=== PATIENT | male | born 1955 | race Two or more races ===

== ENCOUNTER 2021-03-21 05:11 | Emergency (ER) | payer MEDICARE, SELFPAY ==
[2021-03-21 05:17] VITALS: BP 139/81; PULSE 62; RESP 18; TEMP 36.5; O2SAT 99; BMI 34.4
== END 2021-03-21 06:04 | disposition left against medical advice (07) ==
PROVIDERS: Emergency Provider Emergency Medicine; PCP Internal Medicine
DX: R21 Rash and other nonspecific skin eruption (principal)
CPT/HCPCS: 99281; 99282

== ENCOUNTER 2021-04-19 15:30 | Emergency (ER) | payer MEDICARE, SELFPAY ==
--- NOTE | ~2021-04-19 | XR_ITS ---
EXAMINATION: XR CHEST CLINICAL INFORMATION: Post Covid symptoms COMPARISON: Previous chest x-ray most recent January 2019 TECHNIQUE: 2 views of the chest were obtained. FINDINGS: The cardiac silhouette is upper normal in size but stable. The thoracic aorta is tortuous but stable. Hilar and mediastinal contours are otherwise unremarkable. The lungs are clear. There is no pleural effusion or pneumothorax. There are degenerative changes of the spine. XR/XR chest 2V IMPRESSION: Upper normal-size cardiac silhouette tortuous thoracic aorta. No evidence for acute disease in chest.
--- NOTE | ~2021-04-19 | CT_ITS ---
EXAMINATION: CT ANGIOGRAM OF THE CHEST WITH AND WITHOUT CONTRAST (CT PULMONARY ANGIOGRAM FOR PE) CLINICAL INFORMATION: Reason for Exam dizziness, new onset AFib recent COVID r/o PE COMPARISON: Chest radiograph earlier today TECHNIQUE: Prior to contrast administration, noncontrast localization images were obtained. Subsequently, multidetector volumetric imaging was performed from the thoracic inlet to below the diaphragms following the administration of 71 mL Omnipaque 350 intravenous contrast. No contrast reaction reported Sagittal, coronal, and MIP oblique sagittal reformatted images were obtained on the CT workstation, uploaded to PACS, and reviewed. This CT examination was performed using dose optimization techniques as appropriate, variously including the following: *Automated exposure control *Adjustment of mA and/or kV according to patient size (this includes techniques or standardized protocols for targeted exams where dose is matched to indication/reason for exam; i.e. extremities or head) *Use of iterative reconstruction technique Total exam dose-length product 487 mGy-cm FINDINGS: QUALITY OF STUDY/CONTRAST BOLUS: Satisfactory. PULMONARY ARTERIES: No central or segmental pulmonary emboli. THORACIC AORTA: No aneurysm. No gross dissection. LUNG: Some nonspecific mosaic groundglass changes are present dependently at the lung bases. No worrisome focal consolidation, nodules or masses. PLEURA: No pleural effusion or pneumothorax. MEDIASTINUM: Normal heart size. No pericardial effusion. No hilar or mediastinal lymphadenopathy. No evidence of septal bowing or right heart strain. CHEST WALL/AXILLA: No axillary or internal mammary lymphadenopathy. OSSEOUS STRUCTURES: No acute or suspicious osseous abnormality. UPPER ABDOMEN: Unremarkable. No reflux of contrast into the hepatic veins to suggest elevated right heart pressures. CT/CT angio chest PE protocol IMPRESSION: No evidence of pulmonary emboli VTE: negative
[2021-04-19 15:35] VITALS: BP 116/77; PULSE 97; RESP 18; TEMP 36.7; O2SAT 100; BMI 33.7
--- NOTE | 2021-04-19 16:03 | ECG_ITS ---
Test Reason : upper abd pain Blood Pressure : / mmHG Vent. Rate : 077 BPM Atrial Rate : 000 BPM P-R Int : 000 ms QRS Dur : 116 ms QT Int : 366 ms P-R-T Axes : 000 001 004 degrees QTc Int : 414 ms Atrial fibrillation Inferior infarct (cited on or before 23-SEP-2007) Abnormal ECG When compared with ECG of 15-FEB-2019 03:04, Atrial fibrillation has replaced Sinus rhythm Referred By: Generic ED Physician Electronically Signed By:YAHAIRA LANDA
[2021-04-19 16:05] LABS: MANUAL DIFF FLAG NO
[2021-04-19 16:08] LABS: Basophils Absolute Auto 0.1 X10*3/uL (0.0-0.2); Basophils Percent Auto 0.8 % (0-2); Eosinophils Absolute Auto 0.1 X10*3/uL (0.0-0.4); Eosinophils Percent Auto 1.6 % (0-4); Hematocrit 44.7 % (42.0-52.0); Hemoglobin 15.1 g/dl (14.0-18.0); Imm Gran Abs Auto 0.01 X10*3/uL (0.00-0.03); Imm Gran Pct Auto 0.2 % (0.0-0.4); Lymphocytes Absolute Auto 1.5 X10*3/uL (1.2-4.9); Lymphocytes Percent Auto 23.3 % (20-40); Mean Corpuscular HGB Conc 33.8 g/dl (31.0-36.0); Mean Corpuscular Volume 91.8 fL (80.0-98.0); Mean Platelet Volume 10.7 fL (9.4-12.4); Monocytes Absolute Auto 0.6 X10*3/uL (0.1-1.2); Neutrophils Absolute Auto 4.2 x10*3/uL (2.0-8.3); Neutrophils Percent Auto 65.1 % (45-73); Platelet Count 239 X10*3/uL (160-400); Red Blood Count 4.87 X10*6/uL (4.60-5.80); Red Cell Distribution Width 13.7 % (11.0-16.0); White Blood Count 6.4 X10*3/uL (4.8-10.8)
[2021-04-19 16:10] LABS: Appearance Urine CLEAR; Color Urine YELLOW; Glucose Urine UA NEG (NEG); Leukocyte Esterase Urine NEG (NEG); Nitrite Urine NEG (NEG); PH 5.5 (5.0-8.0); Urine Blood NEG (NEG); Urine Ketones NEG (NEG); Urine Protein NEG (NEG-TRACE)
[2021-04-19 16:24] LABS: Alanine Aminotransferase 32 U/L (0-40); Albumin Level 4.6 g/dL (3.5-5.0); Alkaline Phosphatase 68 U/L (39-117); Anion Gap 12 (12-20); Aspartate Amino Transferase 24 U/L (5-37); Bilirubin Total 0.6 mg/dL (0.0-1.0); Blood Urea Nitrogen 17 mg/dL (9-16); Calcium 9.7 mg/dL (8.4-10.2); Carbon Dioxide 32 mmol/L (22-29); Chloride 101 mmol/L (96-108); Creatinine Clr Calc Pharmacy 85.5; Estimated Glomerular Filt Rate > 60; Glucose Random 121 mg/dL (60-115); Potassium 3.9 mmol/L (3.3-5.1); Sodium 141 mmol/L (135-145); Total Protein 7.7 g/dL (6.5-8.0)
[2021-04-19 16:27] LABS: Troponin-I High Sensitivity 4.6 ng/L (<3.5-35.0)
--- NOTE | 2021-04-19 17:36 | ED_ITS ---
HPI - Abdominal Pain General Chief Complaint: Abdominal Pain Stated Complaint: abd pain/ light headedness Time Seen by Provider: 04/19/21 16:15 Source: patient Mode of arrival: ambulatory Limitations: no limitations History of Present Illness HPI narrative: feeling weak, lightheaded upper abdominal discomfort since his COVID symptoms ended on Sunday. notes some feelings of lightheadedness and fullness in upper ab sawyer HOFFMANN elicited complaint: abdominal pain Pertinent past history: other (vaccinated and boostered COVID x 2 weeks ago symptoms resolved from COVID on sunday) Onset (ago): day(s) (started Sunday ) Pain Consistency: intermittent Location: epigastric Severity: mild Quality: fullness Radiation: none Migration to: no migration Exacerbating factors: movement Relieving factors: nothing Associated symptoms: other (lightheaded) Related Data Previous Rx's Medication Instructions Recorded apixaban 5 mg tablet (Eliquis) 5 mg PO BID #60 tab 04/19/21 Allergies Allergy/AdvReac Type Severity Reaction Status Date / Time No Known Allergies Allergy Unknown NOT Verified 04/19/21 15:34 APPLICABLE Review of Systems Review of Systems Constitutional : No Weight loss, No Fever, No Chills ENT/Mouth : No sore throat, No Rhinorrhea Eyes: No Swelling, No Redness Cardiovascular : No Chest Pain, No SOB, NoEdema Respiratory : No Cough, No Sputum, No Wheezing Gastrointestinal : no Nausea, no Vomiting, no Diarrhea, positive abdominal Pain, No Hematochezia, No Melena Genitourinary : No Dysuria, No Urinary Frequency, No Hematuria, No Urgency Musculoskeletal : No joint pain, No Myalgias, No Joint Swelling Skin : No Skin Lesions, No rash Neuro : No Weakness, No Numbness, pos Dizziness, No Headache Psych : No Anxiety/Panic, No Depression Heme/Lymph: No Bruising, No Lymphadenopathy Endocrine : No Polyuria, No Polydipsia All other systems reviewed and are negative. Physical Exam Verdana 4l Vital Signs: Verdana 4d Verdana 4d Vital Signs: Verdana 4d Verdana 4Bd Last Vital Signs Verdana 4d Or Nurse Manager New 4d Or Nurse Manager New 4d Temp 98.4 F 04/19/21 17:50 Or Nurse Manager New 4d Pulse 67 04/19/21 17:50 Or Nurse Manager New 4d Resp 15 04/19/21 17:50 BP 148/91 H 04/19/21 17:50 Pulse Ox 99 04/19/21 17:50 BMI result Body Mass Index 33.7 Appearance: Alert. Oriented X3. No acute distress. Eyes: Pupils equal, round and reactive to light. ENT: Pharynx normal. Neck: Normal inspection. Neck supple. CVS: irregular in 60s heart rate and rhythm. Pulses normal. Respiratory: No respiratory distress. Breath sounds normal. Abdomen: Soft and non-tender. Skin: Skin warm and dry. Normal skin color. Normal skin turgor. Extremities: trace pitting lower extremity edema. No calf ttp Neuro: Oriented X 3. No motor deficit. No sensory deficit. Course Course Course Narrative: labs stable, coags stable, plts normal - no issues with bleeding - needs to start on eliquis given afib went over falling, GIB symptoms and reasons to return - HR 60/70s does not need rate control MDM - Abdominal Pain MDM Narrative Medical decision making narrative: 66 yo male with hx of HTN on lisinopril/HCTZ here with c/o feeling some lightheadedness and upper abdominal discomfort since recovering from COVID - dx two weeks ago not feeling well since Sunday - denies GIB symptoms at this time. He notes that he has never had afib before his rate is controlled. his ChadsVas score is 2 would be a candidate for eliquis - no prior bleeding issues. At this time will need labs, BNP, troponin, CTA to r/o PE. Dispo per results and findings. Lab Data Result diagrams: 04/19/21 15:57 04/19/21 15:57 Labs: Lab Results 04/19/21 04/19/21 04/19/21 Range/Units 15:57 15:57 15:57 WBC 6.4 (4.8-10.8) X10*3/uL RBC 4.87 (4.60-5.80) X10*6/uL Hgb 15.1 (14.0-18.0) g/dl Hct 44.7 (42.0-52.0) % MCV 91.8 (80.0-98.0) fL MCH 31.0 (27.0-33.0) pg MCHC 33.8 (31.0-36.0) g/dl RDW 13.7 (11.0-16.0) % Plt Count 239 (160-400) X10*3/uL MPV 10.7 (9.4-12.4) fL Immature Gran % (Auto) 0.2 (0.0-0.4) % Neut % (Auto) 65.1 (45-73) % Lymph % (Auto) 23.3 (20-40) % [place] % (Auto) 9.0 (2-11) % Eos % (Auto) 1.6 (0-4) % Baso % (Auto) 0.8 (0-2) % Lymph # (Auto) 1.5 (1.2-4.9) X10*3/uL [place] # (Auto) 0.6 (0.1-1.2) X10*3/uL Eos # (Auto) 0.1 (0.0-0.4) X10*3/uL Baso # (Auto) 0.1 (0.0-0.2) X10*3/uL Abs Immat Gran (auto) 0.01 (0.00-0.03) X10*3/uL Absolute Neuts (auto) 4.2 (2.0-8.3) x10*3/uL Absolute Nucleated RBC 0.000 (0.0-0.012) X10*3/uL Nucleated RBC % (auto) 0.0 (0.0-0.2) /100WBC PT (9.9-13.0) SEC INR (0.9-1.1) APTT (24.1-38.0) SEC Sodium 141 (135-145) mmol/L Potassium 3.9 (3.3-5.1) mmol/L Chloride 101 (96-108) mmol/L Carbon Dioxide 32 H (22-29) mmol/L Anion Gap 12 (12-20) BUN 17 H (9-16) mg/dL Creatinine 1.01 (0.5-1.4) mg/dL Estim Creat Clear Calc 85.5 Estimated GFR > 60 Random Glucose 121 H (60-115) mg/dL Calcium 9.7 (8.4-10.2) mg/dL Total Bilirubin 0.6 (0.0-1.0) mg/dL AST 24 (5-37) U/L ALT 32 (0-40) U/L Alkaline Phosphatase 68 (39-117) U/L Troponin I High Sens 4.6 (<3.5-35.0) ng/L B-Natriuretic Peptide (<100) pg/mL Total Protein 7.7 (6.5-8.0) g/dL Albumin 4.6 (3.5-5.0) g/dL Lipase 29 (8-78) U/L TSH 1.57 (0.32-4.0) uIU/mL Urine Color Urine Appearance Urine pH (5.0-8.0) Ur Specific Allison (1.005-1.025) Urine Protein (NEG-TRACE) MG/DL Urine Glucose (UA) (NEG) MG/DL Urine Ketones (NEG) MG/DL Urine Blood (NEG) Urine Nitrite (NEG) Ur Leukocyte Esterase (NEG) 04/19/21 04/19/21 04/19/21 Range/Units 15:57 17:52 17:52 WBC (4.8-10.8) X10*3/uL RBC (4.60-5.80) X10*6/uL Hgb (14.0-18.0) g/dl Hct (42.0-52.0) % MCV (80.0-98.0) fL MCH (27.0-33.0) pg MCHC (31.0-36.0) g/dl RDW (11.0-16.0) % Plt Count (160-400) X10*3/uL MPV (9.4-12.4) fL Immature Gran % (Auto) (0.0-0.4) % Neut % (Auto) (45-73) % Lymph % (Auto) (20-40) % [place] % (Auto) (2-11) % Eos % (Auto) (0-4) % Baso % (Auto) (0-2) % Lymph # (Auto) (1.2-4.9) X10*3/uL [place] # (Auto) (0.1-1.2) X10*3/uL Eos # (Auto) (0.0-0.4) X10*3/uL Baso # (Auto) (0.0-0.2) X10*3/uL Abs Immat Gran (auto) (0.00-0.03) X10*3/uL Absolute Neuts (auto) (2.0-8.3) x10*3/uL Absolute Nucleated RBC (0.0-0.012) X10*3/uL Nucleated RBC % (auto) (0.0-0.2) /100WBC PT 12.5 (9.9-13.0) SEC INR 1.1 (0.9-1.1) APTT 34.4 (24.1-38.0) SEC Sodium (135-145) mmol/L Potassium (3.3-5.1) mmol/L Chloride (96-108) mmol/L Carbon Dioxide (22-29) mmol/L Anion Gap (12-20) BUN (9-16) mg/dL Creatinine (0.5-1.4) mg/dL Estim Creat Clear Calc Estimated GFR Random Glucose (60-115) mg/dL Calcium (8.4-10.2) mg/dL Total Bilirubin (0.0-1.0) mg/dL AST (5-37) U/L ALT (0-40) U/L Alkaline Phosphatase (39-117) U/L Troponin I High Sens (<3.5-35.0) ng/L B-Natriuretic Peptide 73 (<100) pg/mL Total Protein (6.5-8.0) g/dL Albumin (3.5-5.0) g/dL Lipase (8-78) U/L TSH (0.32-4.0) uIU/mL Urine Color YELLOW Urine Appearance CLEAR Urine pH 5.5 (5.0-8.0) Ur Specific [place] 1.020 (1.005-1.025) Urine Protein NEG (NEG-TRACE) MG/DL Urine Glucose (UA) NEG (NEG) MG/DL Urine Ketones NEG (NEG) MG/DL Urine Blood NEG (NEG) Urine Nitrite NEG (NEG) Ur Leukocyte Esterase NEG (NEG) ECG Data Attestation: I personally reviewed and interpreted this ECG as follows: ECG interpretation date: 04/19/21 ECG interpretation time: 17:38 Interpretation: Rate: 77 Rhythm: afib [place]: left Normal QRS complex. ST T wave : no STEPHEN, normal qTC: normal prior studies: no acute ischemia The study has been interpreted contemporaneously by me. . Discharge Plan Discharge Clinical Impression: A-fib Qualifiers: Atrial fibrillation type: unspecified Qualified Code(s): I48.91 - Unspecified atrial fibrillation Patient Disposition: Home, Self-Care Instructions: A-fib (Atrial Fibrillation) (ED), Blood Thinners (ED) Additional Instructions: return to ED for any worsening symptoms or concerns monitor HR should be below 90 at rest please follow up with quotation clerk if you fall and hit your head you need to seek immediate care, black or blood stools require immediate care, life threatening bleeding requires care, nose bleeds can become serious if they do not stop. Prescriptions: New Eliquis 5 mg tablet 5 mg PO BID Qty: 60 0RF Referrals: Lit Chavez MD [Physician] - 1 week Stand Alone Forms: Work/School Release [facility] Past Medical History Attestation statement: The following information was validated with the patient. Medical History HTN (hypertension) Social History Social History (Updated 04/19/21 @ 18:10 by Magda Ríos DO) Patient Tobacco Use Status: Never used Tobacco Advance Directives: No Advance Directives Information Provided: No
[2021-04-19 17:50] VITALS: BP 148/91; PULSE 67; RESP 15; TEMP 36.9; O2SAT 99
[2021-04-19 18:13] LABS: INTERNATIONAL NORM RATIO 1.1 (0.9-1.1); Prothrombin Time 12.5 SEC (9.9-13.0)
[2021-04-19 18:13] LABS: Lipase 29 U/L (8-78)
[2021-04-19 18:16] LABS: Partial Thromboplastin Time 34.4 SEC (24.1-38.0)
[2021-04-19 18:25] LABS: B Type Natriuretic Peptide 73 pg/mL (<100)
[2021-04-19 18:33] LABS: Thyroid Stimulating Hormone 1.57 uIU/mL (0.32-4.0)
[2021-04-19] MEDS: iohexoL 350 MG/ML 100 ML INFUS..BTL IV (18:37)
[2021-04-19 19:51] VITALS: BP 111/75; PULSE 76; RESP 12; O2SAT 97
== END 2021-04-19 20:11 | disposition home or self-care (01) ==
PROVIDERS: Emergency Provider Emergency Medicine; PCP Internal Medicine
DX: I48.91 Unspecified atrial fibrillation (principal); R10.10 Upper abdominal pain, unspecified; R42 Dizziness and giddiness; I10 Essential (primary) hypertension; Z86.16 Personal history of COVID-19
CPT/HCPCS: 36415; 71046; 71275; 80053; 81003; 83690; 83880; 84443; 84484; 85025; 85610; 85730; 93005; 99284; Q9967

== ENCOUNTER → 2021-04-20 10:30 | Outpatient (BNVA) | payer MEDICARE, SELFPAY | PROVIDERS: PCP Internal Medicine; Visit Provider Internal Medicine | DX: I48.0 Paroxysmal atrial fibrillation (principal); I10 Essential (primary) hypertension; Z86.16 Personal history of COVID-19 | CPT/HCPCS: 93005; 99202 ==

== ENCOUNTER → 2021-04-21 13:46 | Outpatient (REF) | payer MEDICARE, SELFPAY ==
--- NOTE | 2021-04-21 13:57 | HM_ITS ---
Conclusion: 1. Patient was monitored for total period of 2 days and 23 hours 2. Baseline rhythm is normal sinus rhythm with average heart rate 67 beats per minute 3. No significant pauses or bradycardia noted 4. Total of 1056 PVCs accounting for 0.36% of total burden accounting for occasional PVCs 5. Total of 338 PACs accounting for occasional PACs 6. No patient reported events MTDD
--- NOTE | 2021-04-21 13:57 | CA_ITS ---
Transthoracic Echocardiogram Patient (Last, First, Middle): Rodrigo Landa L Gender: Male Date of : 1955 Age: 66 Procedure Date: 04/21/2021 Procedure Type: Transthoracic Echocardiogram Location: OP Height: 177.8 cm Weight: 106.6 kg BSA: 2.24 m2 Heart Rate: bpm BP: 111 / 67 mmHg Human Resources Leader: WILLY Referring MD: Lit Chavez MD Symptoms: I48.0 - Paroxysmal atrial fibrillation Study Quality: Fair ECG Rhythm: Sinus Conclusions: - The left ventricular systolic function is low normal. The calculated ejection fraction is 52% by biplane method. - There is mild calcification of the aortic valve. - There is mild mitral valve regurgitation. Findings Left Ventricle Normal left ventricular cavity size. There is mildly increased left ventricular wall thickness. The left ventricular systolic function is low normal. The calculated ejection fraction is 52% by biplane method. There is no evidence of regional wall motion abnormalities. Diastolic function is normal for age. Right Ventricle Normal right ventricular cavity size. There is low normal right ventricular systolic function. TAPSE 1.65cm. Atria Both atria are normal in size. Aortic Valve There is a normal trileaflet aortic valve. There is mild calcification of the aortic valve. There is no aortic valve stenosis. There is trace (trivial) aortic valve regurgitation. Mitral Valve The mitral valve appears normal. There is mild mitral valve regurgitation. There is no mitral valve stenosis. Pulmonic Valve The pulmonic valve was not well visualized. Tricuspid Valve There is trace tricuspid valve regurgitation. The pulmonary artery systolic pressure is normal. Great Vessels The aortic annulus, sinuses of valsalva, asc aorta, and aortic arch are normal in size. Venous The inferior vena cava is normal in size and collapses greater than 50% with inspiration. Pericardium/Pleural There is no evidence of pericardial effusion. Prior Study Comparison No significant change compared to prior study dated: 09/24/2007. Measurements 2D Linear Measurements IVSd: 1.25 0.6-0.9/0.6-1.0 cm LVIDd: 4.47 3.9-5.3/4.2-5.9 cm LVIDd Index: 2.00 2.4-3.2/2.2-3.1 cm/m2 LVIDs: 2.93 2.0-3.6 cm LVPWd: 1.26 0.7-1.1 cm Ao Root: 3.90 2.1-3.5 cm LA Diam: 3.60 2.7-3.8/3.0-4.0 cm LAIDs Index: 1.61 1.5-2.3 cm/m2 LV Mass: 260.78 67-162/88-224 g LV Mass Index: 116.42 43-95/49-115 g/m2 LVOT Diam: 2.20 3.0+(-)1.3 cm 2D Systolic Function EF 4C: 52.40 >55% EF 2C: 51.70 >55% EF BiP: 52.10 >55% Mitral Valve MV Pk E: 0.79 MV PK A: 0.55 MV Decel Time: 218.00 E/A: 1.40 E'Lateral: 9.79 E'Medial: 9.46 E/E' Med: 8.30 E/E' Lat: 8.00 PHT: 64.00 MVA PHT: 3.44 Decel Dukes: 3.61 Aortic Valve AoV Pk Edi: 1.86 AoV Mn Edi: 1.33 AoV VTI: 0.37 AoV Pk Grad: 14.00 Aov Mn Grad: 8.00 ANDRZEJ Cont.VTI: 2.28 LVOT LVOT Pk Edi: 1.17 LVOT Mn Edi: 0.88 LVOT VTI: 0.22 LVOT Pk Grad: 5.00 LVOT Mn Grad: 3.00 LVOT Diam: 2.20 LVOT Area: 3.80 Diastolic Function MV Pk E: 0.79 MV Pk A: 0.55 E/A: 1.40 E'Medial: 9.46 E/E' Med: 8.30 E' Laterial: 9.79 E/E' Lat: 8.00 Right Ventricle TAPSE (mm): 17.00 TVS' Edi: 12.30 Tricuspid Valve TR Pk Edi: 2.46 TR Pk Grad: 24.00 RA Press: 8.00 RVSP: 32.00 Great Vessels Aorta Ao Root-2D: 3.90 2.0-3.7 cm Ao Asc: 3.10 2.1-3.4 cm Ao Arch: 3.10 Updated in Other Vendor System with Status of Final Lit Chavez MD electronically signed on 04/22/2021 1:52:59 PM with status of Final
== END ==
LOC: HO.CARD 13:46
PROVIDERS: PCP Internal Medicine; Visit Provider Internal Medicine
DX: I48.0 Paroxysmal atrial fibrillation (principal)
CPT/HCPCS: 93242; 93306

== ENCOUNTER → 2021-05-19 10:11 | Outpatient (BNVA) | payer MEDICARE, SELFPAY | PROVIDERS: PCP Internal Medicine; Visit Provider Internal Medicine | DX: I48.0 Paroxysmal atrial fibrillation (principal); I10 Essential (primary) hypertension; E66.01 Morbid (severe) obesity due to excess calories; Z86.16 Personal history of COVID-19; Z68.33 Body mass index [BMI] 33.0-33.9, adult | CPT/HCPCS: 99212 ==

== ENCOUNTER → 2021-10-31 10:10 | Outpatient (BNVA) | payer MEDICARE, SELFPAY | PROVIDERS: PCP Internal Medicine; Visit Provider Internal Medicine | DX: I48.0 Paroxysmal atrial fibrillation (principal); I10 Essential (primary) hypertension; E66.01 Morbid (severe) obesity due to excess calories; Z79.899 Other long term (current) drug therapy; Z86.16 Personal history of COVID-19 | CPT/HCPCS: 99212 ==

== ENCOUNTER 2022-02-08 05:08 | Emergency (ER) | payer MEDICARE, SELFPAY ==
[2022-02-08 05:12] VITALS: BP 143/77; PULSE 85; RESP 18; TEMP 36.6; O2SAT 96; BMI 35.2
--- NOTE | 2022-02-08 05:16 | ED.URI ---
HPI - URI/Sore Throat General Chief Complaint: Upper Respiratory Symptoms Stated Complaint: sinus pain Time Seen by Provider: 02/08/22 05:25 Source: patient Mode of arrival: ambulatory Limitations: no limitations History of Present Illness HPI Narrative: patient comes to the emergency room complaining of upper respiratory issues. Patient complaining of sore, bilateral ear discomfort, no fever, no chills, complaining of dry cough. Related Data Home Medications Medication Instructions Recorded Confirmed atorvastatin 10 mg tablet 10 mg PO DAILY 04/20/21 10/31/21 lisinopril 20 1 tab PO DAILY 04/20/21 10/31/21 mg-hydrochlorothiazide 25 mg tablet apixaban 5 mg tablet (Eliquis) 5 mg PO BID 10/31/21 10/31/21 Previous Rx's Medication Instructions Recorded benzocaine 15 mg lozenges 15 mg mucous membrane Q2-3H PRN 02/08/22 sore throat #18 ea diphenhydramine HCl 25 mg capsule 25 mg PO BEDTIME PRN allergy 02/08/22 (Benadryl) symptoms #7 caps Allergies Allergy/AdvReac Type Severity Reaction Status Date / Time No Known Allergies Allergy Unknown NOT Verified 10/31/21 10:20 APPLICABLE Review of Systems Review of Systems: Constitutional : No Weight loss, No Fever, No Chills, No Night Sweats, No Fatigue, No Malaise ENT/Mouth : No Hearing loss, No Ear Pain, No Nasal Congestion, No Sinus Pain, No Hoarseness, Complaining of mild sore throat, No Rhinorrhea, No Swallowing Difficulty Eyes: No Eye Pain, No Swelling, No Redness, No Foreign Body, No Discharge, No Vision Changes Cardiovascular : No Chest Pain, No SOB, No Dyspnea on Exertion, No Orthopnea, No Edema, No Palpitations Respiratory : No Cough, No Sputum, No Wheezing, No Smoke Exposure, No Dyspnea Gastrointestinal : No Nausea, No Vomiting, No Diarrhea, No Constipation, No abdominal Pain, No Hematochezia, No Melena Genitourinary : no irregular bleeding, No Dysuria, No Urinary Frequency, No Hematuria, No Urinary Incontinence, No Urgency, No Flank Pain, No Urinary Flow Changes, No Hesitancy Musculoskeletal : No joint pain, No Myalgias, No Joint Swelling Skin : No Skin Lesions, No rash Neuro : No Weakness, No Numbness, No Paresthesias, No Loss of Consciousness, No Dizziness, No Headache Psych : No Anxiety/Panic, No Depression, No SI/HI/AH/VH, No Social Issues, Heme/Lymph: No Bruising, No Bleeding,No Lymphadenopathy Endocrine : No Polyuria, No Polydipsia, No Temperature Intolerance [facility] Past Medical History Medical History HTN (hypertension) Morbid obesity PAF (paroxysmal atrial fibrillation) Surgical History No pertinent past surgical history Family History Family History Father No problems noted. Mother No problems noted. Social History Social History Patient Tobacco Use Status: Never used Tobacco Advance Directives: No Physical Exam Vital Signs: Vital Signs: Last Vital Signs Temp 98.4 F 02/08/22 06:18 Pulse 82 02/08/22 06:18 Resp 17 02/08/22 06:18 BP 123/73 02/08/22 06:18 Pulse Ox 94 02/08/22 06:18 O2 Del Method 02/08/22 06:18 BMI result Body Mass Index 35.2 Const: Other: Appearance: Alert. Oriented X3. No acute distress. Eyes: Pupils equal, round and reactive to light. ENT: Pharynx erythematous, no exudates, no visualized abscesses Neck: Normal inspection. Neck supple. No lymph nodes noted. No crepitus CVS: Normal heart rate and rhythm. Pulses normal. Normal S1 and S2 Respiratory: No respiratory distress. Breath sounds normal. No Wheezing. No rales Abdomen: Soft and nontender. No rigidity. No distention. Skin: Skin warm and dry. Normal skin color. Normal skin turgor. Extremities: No lower extremity edema. No Lacerations. No Rash Neuro: Oriented X 3. No motor deficit. No sensory deficit. Moving all extremities. No slurred speech. CN 2 through 12 grossly intact Psych: calm, cooperative, normal affect Course Course Course Narrative: patient's flu/ COVID/RSV and strep test are pending. Patient was seen 1 dose of p.o. dexamethasone lidocaine for symptomatic relief. Patient requesting medication to help him sleep at night and to help dry this decreases. Patient instructed to take Benadryl, prescribe this into the patient's pharmacy. both strep and RSV / influenza /COVID are negative. Medications Administered Discontinued Medications Generic Name Dose Route Start Last Admin Trade Name Mioq PRN Reason Stop Dose Admin Dexamethasone Sodium Phosphate 6 mg 02/08/22 05:21 02/08/22 05:31 Dexamethasone Sod Phosphate 4 Mg/Ml Vial IVPUSH 02/08/22 05:22 6 mg ONCE ONE Administration Lidocaine HCl 15 ml 02/08/22 05:21 02/08/22 05:33 Lidocaine Hcl Viscous 2 % 15 Ml Solution MUCOUS MEM 02/08/22 05:22 15 ml ONCE ONE Administration MDM - URI/Sore Throat Lab Data Labs: Lab Results 02/08/22 02/08/22 Range/Units 05:21 05:21 Influenza Type A (PCR) NEGATIVE (Negative) Influenza Type B (PCR) NEGATIVE (Negative) RSV RNA Qual (PCR) NEGATIVE (Negative) SARS-CoV-2 RNA (RT-PCR) NEGATIVE (Negative) S. pyogenes GrpA STEVEN Negative (Negative) Discharge Plan Discharge Clinical Impression: Upper respiratory infection Patient Disposition: Home, Self-Care Instructions: Upper Respiratory Infection (ED) Additional Instructions: Please follow-up with your primary care physician tomorrow. If you have any worsening or new symptoms, please return to the emergency room or call 911 Prescriptions: New diphenhydramine HCl [Benadryl] 25 mg capsule 25 mg PO BEDTIME PRN (Reason: allergy symptoms) Qty: 7 0RF benzocaine 15 mg lozenge 15 mg mucous membrane Q2-3H PRN (Reason: sore throat) Qty: 18 0RF No Action lisinopril-hydrochlorothiazide 20-25 mg tablet 1 tab PO DAILY atorvastatin 10 mg tablet 10 mg PO DAILY Eliquis 5 mg tablet 5 mg PO BID
[2022-02-08] MEDS: dexAMETHasone sod phosphate 4 MG/ML VIAL 6 MG IVPUSH (05:31)
[2022-02-08] MEDS: Lidocaine HCl Viscous 2 % 15 ML SOLUTION MUCOUS MEM (05:33)
[2022-02-08 06:03] LABS: Influenza A PCR NEGATIVE (Negative); Influenza B PCR NEGATIVE (Negative); Resp Syncy Virus RNA Qual PCR NEGATIVE (Negative); SARS COV2 PCR INHOUSE NEGATIVE (Negative); Strep A Nucleic Acid Negative (Negative)
[2022-02-08 06:18] VITALS: BP 123/73; PULSE 82; RESP 17; TEMP 36.9; O2SAT 94
== END 2022-02-08 06:30 | disposition home or self-care (01) ==
PROVIDERS: Emergency Provider Emergency Medicine; PCP Internal Medicine
DX: J06.9 Acute upper respiratory infection, unspecified (principal); Z20.822 Contact with and (suspected) exposure to COVID-19; Z79.899 Other long term (current) drug therapy
CPT/HCPCS: 0241U; 36415; 87651; 99283; 99284; J1100

== ENCOUNTER → 2022-05-31 08:58 | Outpatient (BNVA) | payer MEDICARE, SELFPAY | PROVIDERS: PCP Internal Medicine; Visit Provider Internal Medicine | DX: I48.0 Paroxysmal atrial fibrillation (principal); I10 Essential (primary) hypertension; G47.33 Obstructive sleep apnea (adult) (pediatric); E66.01 Morbid (severe) obesity due to excess calories; Z68.35 Body mass index [BMI] 35.0-35.9, adult | CPT/HCPCS: 93005; 99212 ==

== ENCOUNTER → 2022-09-28 08:45 | Outpatient (REF) | payer MEDICARE, SELFPAY | LOC: HO.SL 08:45 | PROVIDERS: PCP Internal Medicine; Visit Provider Internal Medicine | DX: G47.33 Obstructive sleep apnea (adult) (pediatric) (principal); R06.83 Snoring | CPT/HCPCS: 95806 ==

== ENCOUNTER → 2022-09-28 09:01 | Outpatient (BNV) | payer MEDICARE, SELFPAY | PROVIDERS: PCP Internal Medicine; Visit Provider Internal Medicine | DX: R06.83 Snoring (principal) | CPT/HCPCS: 95806 ==

== ENCOUNTER 2023-01-22 09:25 | Outpatient (AMB) | payer MEDICARE, SELFPAY ==
--- NOTE | 2023-01-22 09:40 | A.OFFVIS_ITS ---
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 Today he reports he has been feeling very well since his last visit on 05/31/2022. He denies any feelings like his prior atrial fibrillation which he describes as a heaviness in his chest. He denies any heart palpitations, shortness of breath, chest discomfort. No presyncope, syncope, falls. No PND, orthopnea or edema. He has good activity tolerance and goes to the gym most days. He does treadmill and weight lifting with good tolerance. 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 Takes meds as directed. No bleeding issues reported. [facility] Medical History Morbid obesity PAF (paroxysmal atrial fibrillation) HTN (hypertension) Surgical History Hx of colonoscopy Family History Father No problems noted. Mother No problems noted. Social History Patient Tobacco Use Status: Never used Tobacco Review of Systems Const All systems reviewed & are unremarkable except as noted in HPI and below ENT Denies dizziness Card Denies chest pain, Denies chest pain at rest, Denies chest pain with activity, Denies rapid heart rate, Denies pedal edema, Denies edema, Denies leg edema, Denies lightheadedness, Denies palpitations, Denies dyspnea, Denies dyspnea on exertion and Denies orthopnea Resp Denies cough, Denies dyspnea and Denies dyspnea on exertion GI Denies hematochezia and Denies change in stool character Musc Denies abnormal gait, Denies limited range of motion, Denies muscle cramps, Denies muscle weakness, Denies numbness, Denies radiating pain into limb, Denies stiffness and Denies tingling Neuro Denies abnormal gait, Denies dizziness, Denies numbness and Denies tingling Endo Denies palpitations Physical Exam Vital Signs: Last Vital Signs Pulse 65 01/22/23 09:41 BP 124/82 01/22/23 09:41 BMI result Body Mass Index 32.6 Const General: cooperative, healthy appearing, comfortable and no acute distress Orientation/consciousness: patient oriented x3 Neck Neck: Yes normal visual inspection Resp Effort & Inspection: normal respiratory effort Auscultation: clear to auscultation bilaterally, no crackles, no rales, no rhonchi and no wheezes Cardio Jugular venous distension: no JVD Rate: regular rate Rhythm: regular rhythm Heart sounds: S1 normal heart sound present, S2 normal heart sound present, no murmurs and no rubs Neuro General: patient oriented x3 Extrem General: Yes normal to inspection Psych Appearance: grossly normal Mental Status: mental status grossly normal Speech and movement: Normal speech and movement present Assessment & Plan Assessment & Plan (1) PAF (paroxysmal atrial fibrillation): Code(s): I48.0 - Paroxysmal atrial fibrillation Plan: History of paroxysmal atrial fibrillation at least 1 documented episode. Heart rate on slower side and has not required rate slowing medications. Holter mo nitor done on 04/21/2021 for 3 days showed sinus rhythm with average heart rate 67 beats per minute, occasional PVCs and PACs. Echocardiogram done on 04/21/2021 showed EF 52%, mild calcification of the aortic valve and mild MR. He tells me he has not felt any recurrent atrial fibrillation since his initial episode. He describes that as being a heaviness in his chest. He has good activity tolerance and goes to the gym most days. Pulse is very regular on examination today, no concern for AFib. He is on Eliquis for anticoagulation. Chads Vasc score 3. No bleeding issues reported. Need for ongoing anticoagulation reviewed with him. Continue current management. Labs followed by his PCP, will work on obtaining a copy of most recent values. Cardiology follow-up in 6 months, sooner if needed (2) Essential hypertension: Code(s): I10 - Essential (primary) hypertension Plan: Blood pressure is well controlled at this time. Continue on current lisinopril and hydrochlorothiazide. Labs followed by PCP Coding Level of Care Code Est Pt Level 3 (46345) Diagnoses PAF (paroxysmal atrial fibrillation) I48.0 Essential hypertension I10 Time Spent (min) 24
[2023-01-22 09:41] VITALS: BP 124/82; PULSE 65; BMI 32.6
== END 2023-01-22 10:13 | disposition home or self-care (01) ==
PROVIDERS: PCP Internal Medicine; Visit Provider Nurse Practitioner Family
DX: I48.0 Paroxysmal atrial fibrillation (principal); I10 Essential (primary) hypertension
CPT/HCPCS: 99213

== ENCOUNTER → 2023-01-22 09:25 | Outpatient (BNVA) | payer MEDICARE, SELFPAY | PROVIDERS: PCP Internal Medicine; Visit Provider Nurse Practitioner Family | DX: I48.0 Paroxysmal atrial fibrillation (principal); I10 Essential (primary) hypertension; Z79.01 Long term (current) use of anticoagulants; Z79.899 Other long term (current) drug therapy | CPT/HCPCS: 99212 ==

== ENCOUNTER 2023-07-24 09:14 | Outpatient (AMB) | payer MEDICARE, SELFPAY ==
[2023-07-24 09:22] VITALS: BP 128/70; PULSE 50; BMI 34.3
--- NOTE | 2023-07-24 09:22 | MHC.OFFVIS ---
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 Today he reports he has been feeling very well since his last visit on 01/22/2023. He denies any feelings like his prior atrial fibrillation which he describes as a heaviness in his chest. He denies any heart palpitations, shortness of breath, chest discomfort. No presyncope, syncope, falls. No PND, orthopnea or edema. He has good activity tolerance and goes to the gym most days. He still does treadmill, for an hour at a time, and weight lifting with good tolerance. 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 Takes meds as directed. No bleeding issues reported. [facility] Medical History Morbid obesity PAF (paroxysmal atrial fibrillation) HTN (hypertension) Surgical History Hx of colonoscopy Family History Father No problems noted. Mother No problems noted. Social History Patient Tobacco Use Status: Never used Tobacco Review of Systems Const All systems reviewed & are unremarkable except as noted in HPI and below ENT Denies dizziness Card Denies chest pain, Denies chest pain at rest, Denies chest pain with activity, Denies rapid heart rate, Denies pedal edema, Denies edema, Denies leg edema, Denies lightheadedness, Denies palpitations, Denies dyspnea, Denies dyspnea on exertion and Denies orthopnea Resp Denies cough, Denies dyspnea and Denies dyspnea on exertion GI Denies hematochezia and Denies change in stool character Musc Denies abnormal gait, Denies limited range of motion, Denies muscle cramps, Denies muscle weakness, Denies numbness, Denies radiating pain into limb, Denies stiffness and Denies tingling Neuro Denies abnormal gait, Denies dizziness, Denies numbness and Denies tingling Endo Denies palpitations Physical Exam Vital Signs: Last Vital Signs Pulse 50 07/24/23 09:22 BP 128/70 07/24/23 09:22 BMI result Body Mass Index 34.3 Const General: cooperative, healthy appearing, comfortable and no acute distress Orientation/consciousness: patient oriented x3 Neck Neck: Yes normal visual inspection and Yes no JVD Resp Effort & Inspection: normal respiratory effort Auscultation: clear to auscultation bilaterally, no crackles, no rales, no rhonchi and no wheezes Cardio Jugular venous distension: no JVD Rate: regular rate Rhythm: regular rhythm Heart sounds: S1 normal heart sound present, S2 normal heart sound present, no murmurs and no rubs Skin General skin exam: no rashes or lesions noted Neuro General: patient oriented x3 Extrem General: Yes normal to inspection and No no pedal edema Psych Appearance: grossly normal Mental Status: mental status grossly normal Speech and movement: Normal speech and movement present Office Procedures EKG Details: Today, read by me, sinus bradycardia, first-degree AV block, can not rule out anterior infarct, QTC 390 milliseconds, rate 50. [id number], Complete Assessment & Plan Assessment & Plan (1) PAF (paroxysmal atrial fibrillation): Code(s): I48.0 - Paroxysmal atrial fibrillation Category: Medical Plan: History of paroxysmal atrial fibrillation at least 1 documented episode. Heart rate on slower side and has not required rate slowing medications. Holter monitor done on 04/21/2021 for 3 days showed sinus rhythm with average heart rate 67 beats per minute, occasional PVCs and PACs. Echocardiogram done on 04/21/2021 showed EF 52%, mild calcification of the aortic valve and mild MR. A CTA of the chest was done on 04/19/2021 and does not mention any coronary calcifications. He tells me he has not felt any recurrent atrial fibrillation since his initial episode. His symptom with AFib was a heaviness in his chest. He has good activity tolerance and goes to the gym most days. Pulse is very regular on examination today, no concern for AFib. He is on Eliquis for anticoagulation. Chads Vasc score 3. No bleeding issues reported. Need for ongoing anticoagulation reviewed with him. Continue current management. Labs followed by his PCP. Labs done 09/16/2022 showed hematocrit 44.2, creatinine 0.9. Cardiology follow-up in 6 months, sooner if needed (2) Essential hypertension: Code(s): I10 - Essential (primary) hypertension Category: Medical Plan: Blood pressure is well controlled at this time. Continue on current lisinopril and hydrochlorothiazide. Labs followed by PCP Plan Time spent on chart review, documentation, interview and assessment Coding Level of Care Code Est Pt Level 3 (57008) Diagnoses PAF (paroxysmal atrial fibrillation) I48.0 Essential hypertension I10 CPT Codes EKG - CPT: [id number], Complete ([id number]) Time Spent (min) 24
== END 2023-07-24 09:54 | disposition home or self-care (01) ==
PROVIDERS: PCP Internal Medicine; Visit Provider Nurse Practitioner Family
DX: I48.0 Paroxysmal atrial fibrillation (principal); I10 Essential (primary) hypertension
CPT/HCPCS: 93010; 99213

== ENCOUNTER → 2023-07-24 09:14 | Outpatient (BNVA) | payer MEDICARE, SELFPAY | PROVIDERS: PCP Internal Medicine; Visit Provider Nurse Practitioner Family | DX: I48.0 Paroxysmal atrial fibrillation (principal); I10 Essential (primary) hypertension; Z79.01 Long term (current) use of anticoagulants; Z79.899 Other long term (current) drug therapy | CPT/HCPCS: 93005; 99212 ==

== ENCOUNTER 2024-01-29 09:16 | Outpatient (AMB) | payer MEDICARE, SELFPAY ==
--- NOTE | 2024-01-29 09:43 | MHC.OFFVIS ---
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 In 2021, he was seen regarding atrial fibrillation. He had COVID infection and subsequently diagnosed with atrial fibrillation. However, ventricular rate was controlled. As the rate was already well within normal range, he was not on any medications. Was on anticoagulation. In follow-up visits, he had converted back to sinus rhythm by himself. Patient states that he was morbidly obese in the past and weighed almost 290-300 lb. Then he lost a lot of weight and apparently his meds were cut back. Previously on metoprolol but not anymore. Still takes lisinopril/hydrochlorothiazide for blood pressure. No documented sleep apnea. He states that he actually sleeps on his stomach with his face down. But when he sleeps facing up, he wakes up with some symptoms suggesting possible sleep apnea but not clear. Never been tested. He states he is very active at baseline with no limitations. He works out on the treadmill at a 15% incline at more than 4 mph and does this for 1 hour. No symptoms. [facility] Medical History Morbid obesity PAF (paroxysmal atrial fibrillation) HTN (hypertension) Surgical History Hx of colonoscopy Family History Father No problems noted. Mother No problems noted. Social History (Updated 01/29/24 @ 09:48 by Jodee Nieves CMA) Alcohol intake: never Patient Tobacco Use Status: Never used Tobacco Review of Systems Const Denies chills, Denies fatigue, Denies fever(s), Denies weight gain and Denies weight loss ENT Denies dizziness Card Denies chest pain, Denies leg edema, Denies lightheadedness, Denies palpitations, Denies dyspnea on exertion, Denies orthopnea and Denies other Resp Denies cough and Denies dyspnea on exertion GI Denies hematochezia and Denies change in stool character Musc Denies abnormal gait, Denies muscle weakness, Denies numbness, Denies radiating pain into limb and Denies tingling Neuro Denies abnormal gait, Denies dizziness, Denies numbness and Denies tingling Endo Denies fatigue and Denies palpitations Physical Exam Vital Signs: Last Vital Signs Pulse 63 01/29/24 09:44 BP 132/78 01/29/24 09:44 BMI result Body Mass Index 33.5 Const General: comfortable and no acute distress Orientation/consciousness: patient oriented x3 HEENT Other: Unremarkable Head: Yes normal to inspection Neck Neck: Yes normal visual inspection Chest Chest palpation & inspection: normal inspection of the chest Resp Auscultation: clear to auscultation bilaterally Cardio Palpation: normal PMI Heart sounds: S1 normal heart sound present, S2 normal heart sound present, no gallops, no murmurs and no rubs GI Palpation (GI): Soft to palpation Back/Spine/Pelvis Other: unremarkable Skin General skin exam: no rashes or lesions noted Neuro General: patient oriented x3 Extrem General: Yes normal to inspection Psych Mental Status: mental status grossly normal Assessment & Plan Assessment & Plan (1) PAF (paroxysmal atrial fibrillation): Code(s): I48.0 - Paroxysmal atrial fibrillation Category: Medical (2) Essential hypertension: Code(s): I10 - Essential (primary) hypertension Category: Medical (3) Morbid obesity: Code(s): E66.01 - Morbid (severe) obesity due to excess calories Category: Medical Plan Cardiac studies reviewed. Last Holter shows underlying sinus rhythm with an average rate of 67/Min. Occasional PACs/PVCs. No atrial fibrillation. Echocardiogram with low-normal LVEF, 52%. Mild mitral regurgitation and mild aortic valve calcification. He has been in sinus rhythm without any issues. Even while in atrial fibrillation, rate was well controlled and only in the 70s. Continue anticoagulation without changes. With regard to blood pressure, on lisinopril/hydrochlorothiazide. Screening sleep study is negative. With regard to weight, he is exercising regularly and also eating healthier but he states this is his best weight and he can not lose anymore. Overall, seems stable. If any concerning symptoms like angina, advised him to contact us immediately. Otherwise, we can see him back in 1 year. He agrees with this plan. Coding Level of Care Code Est Pt Level 4 (28860) Diagnoses PAF (paroxysmal atrial fibrillation) I48.0 Essential hypertension I10 Morbid obesity E66.01
[2024-01-29 09:44] VITALS: BP 132/78; PULSE 63; BMI 33.5
== END 2024-01-29 10:00 | disposition home or self-care (01) ==
PROVIDERS: PCP Internal Medicine; Visit Provider Internal Medicine
DX: I48.0 Paroxysmal atrial fibrillation (principal); I10 Essential (primary) hypertension; E66.01 Morbid (severe) obesity due to excess calories
CPT/HCPCS: 99214

== ENCOUNTER → 2024-01-29 09:16 | Outpatient (BNVA) | payer MEDICARE, SELFPAY | PROVIDERS: PCP Internal Medicine; Visit Provider Internal Medicine | DX: I48.0 Paroxysmal atrial fibrillation (principal); I10 Essential (primary) hypertension; E66.01 Morbid (severe) obesity due to excess calories; Z68.33 Body mass index [BMI] 33.0-33.9, adult; Z86.16 Personal history of COVID-19; Z79.01 Long term (current) use of anticoagulants | CPT/HCPCS: 99212 ==

== ENCOUNTER 2024-07-13 09:12 | Emergency (ER) | payer MEDICARE, SELFPAY ==
[2024-07-13 09:16] VITALS: BP 146/79; PULSE 56; RESP 19; TEMP 36.6; O2SAT 99; BMI 34.7
[2024-07-13 10:04] LABS: Appearance Urine Clear; Color Urine Yellow; Glucose Urine UA Negative (Negative); Leukocyte Esterase Urine Large (3+) (Negative); Nitrite Urine Negative (Negative); PH 6.5 (5.0-9.0); UMIC TRIGGER UACC YES; Urine Blood Small (1+) (Negative); Urine Ketones Negative (Negative); Urine Protein Negative (Neg-Trace)
[2024-07-13 10:17] LABS: Bacteria Urine None Seen (None Seen); Hyaline Casts Urine 0-2 /LPF (0-2); Squamous Epithelial Cell Urine 0-2 /HPF (0-2); UACC Culture Trigger YES; WBC Urine >50 /HPF (0-5)
--- NOTE | 2024-07-13 10:21 | ED_ITS ---
HPI - Male Genitourinary General Chief complaint: Urogenital-Male Stated complaint: UTI Time Seen by Provider: 07/13/24 10:20 Source: patient Mode of arrival: ambulatory Limitations: no limitations History of Present Illness ED Provider: DA GONZALEZ PA-C HPI Narrative: 69 year-old male with pmhx of HTN and PAF, presents to the ED today for evaluation of burning with urination x 3 days. Patient reports having unprotected intercourse with his 3 days ago. He then developed burning with urination the same day. He has noticed worsening burning sensation when eating spicy foods. He has been trying to stay hydrated which alleviate the burning sensation. The pain can range from a 3/10 to 7/10. Denies fever, chills, nausea, vomiting, abdominal pain, flank pain. Related Data Home Medications ?Medication ?Instructions ?Recorded ?Confirmed atorvastatin 10 mg tablet 10 mg PO DAILY 04/20/21 01/29/24 lisinopril 20 1 tab PO DAILY 04/20/21 01/29/24 mg-hydrochlorothiazide 25 mg tablet apixaban 5 mg tablet (Eliquis) 5 mg PO BID 10/31/21 01/29/24 hydrocortisone 2.5 % topical cream 1 appl topical BID 05/31/22 01/29/24 Previous Rx's ?Medication ?Instructions ?Recorded cefuroxime axetil 250 mg tablet 250 mg PO BID 7 days #14 tabs 07/13/24 Allergies Allergy/AdvReac Type Severity Reaction Status Date / Time No Known Allergies Allergy Unknown NOT Verified 07/13/24 09:17 APPLICABLE Review of Systems Review of Systems: Yes all other systems are reviewed and are negative [facility] Past Medical History Attestation statement: The following information was validated with the patient. Source: old records reviewed and nursing notes reviewed Medical History Morbid obesity PAF (paroxysmal atrial fibrillation) HTN (hypertension) Surgical History Hx of colonoscopy Family History Family History Father No problems noted. Mother No problems noted. Social History Social History Alcohol intake: never Patient Tobacco Use Status: Never used Tobacco Advance Directives: No Advance Directives Information Provided: No Do you have a plan to hurt others: No Plan Physical Exam Vital Signs: Vital Signs: Last Vital Signs Temp 97.8 F 07/13/24 13:03 Pulse 54 07/13/24 13:03 Resp 14 07/13/24 13:03 BP 134/80 07/13/24 13:03 Pulse Ox 97 07/13/24 13:03 O2 Del Method Room Air 07/13/24 13:03 BMI result Body Mass Index 34.7 Hypertensive, vital signs otherwise stable General: Well appearing, in no acute distress. Skin: Warm, dry, intact. No rashes or lesions. Head: Normocephalic, atraumatic. EENT: Hearing is intact b/l. Conjunctiva clear. PERRLA. EOM intact.Moist mucous membranes.? Neck: Supple without LAD Cardiac: Chest wall symmetric. RRR Lungs: Normal respiratory effort without accessory muscle use. CTA bilaterally Abdomen: soft, non-tender, non-distended. No rebound tenderness or guarding. Positive BS x4. no cvat. Back: No midline spinous or paraspinal tenderness. No step off deformity. Ext: Upper and lower extremities atraumatic, without tenderness, deformity, swelling or erythema Neuro: AOx3. Normal speech. Ambulating with steady gait. Course Course Course Narrative: Urine infected. CT/NG negative. will treat w/ ceftin. culture pending. Patient has remained stable throughout ED visit today. Discussed worrisome signs and symptoms and when to return to the ED. All questions answered at this time. Patient is agreeable with disposition and stable for discharge. Medical Decision Making Medical Decision Making MDM Narrative: 69 year-old male with pmhx of HTN and PAF, presents to the ED today for evaluation of burning with urination x 3 days. Hypertensive, vitals otherwise WNL. He is nontoxic-appearing and in no acute distress. Abdomen is soft, nondistended, nontender to palpation, there is no rebound tenderness or guarding. Active bowel sounds x4. No CVAT bilaterally. Differential diagnosis includes UTI, STD Likely prostatitis, renal colic, nephrolithiasis, pyelonephritis, orchitis Plan for urinalysis and CT/NG testing. I am not concerned about kidney infection, labs not warranted at this time. Imaging not warranted at this time. Differential Diagnosis Differential Diagnoses: The differential diagnosis associated with the presentation includes As above Admission/Observation Not indicated Lab Data MDM Lab Attestation statement: I reviewed the patient's lab results. As above. Labs: Lab Results 07/13/24 07/13/24 Range/Units 09:57 10:26 Urine Color Yellow Urine Appearance Clear Urine pH 6.5 (5.0-9.0) Ur Specific [place] 1.010 (1.005-1.025) Urine Protein Negative (Neg-Trace) mg/dL Urine Glucose (UA) Negative (Negative) mg/dL Urine Ketones Negative (Negative) mg/dL Urine Blood Small (1+) H (Negative) Urine Nitrite Negative (Negative) Ur Leukocyte Esterase Large (3+) H (Negative) Urine RBC 3-5 H (0-2) /HPF Urine WBC >50 H (0-5) /HPF Ur Squamous Epith Cells 0-2 (0-2) /HPF Urine Bacteria None Seen (None Seen) Hyaline Casts 0-2 (0-2) /LPF Chlam trachomat DNA PCR NOT DETECTED (Not Detect.) N.gonorrhoeae DNA (PCR) NOT DETECTED (Not Detect.) External Record Review External record reviewed: Inpatient record Prescription Management I considered prescription management with: Antibiotic (ceftin) Social Determinants Patient?s care significantly limited by Social Determinants of Health including: Other Social Determinant of Health Critical Care Time Critical Care Time Critical Care Time: No Discharge Plan Discharge Clinical Impression: Urinary tract infection Patient Disposition: Home, Self-Care Instructions: Urinary Tract Infection in Men (ED) Additional Instructions: You were evaluated in the ED today for burning with urination. Your urine is infected. I am treating you with an antibiotic called Ceftin. Take this as prescribed and to completion. Follow up with your PCP and urologist. Return with any new or worsening symptoms. In the case of an emergency call 911. Prescriptions: New cefuroxime axetil 250 mg tablet 250 mg PO BID 7 Days Qty: 14 0RF No Action lisinopril-hydrochlorothiazide 20-25 mg tablet 1 tab PO DAILY atorvastatin 10 mg tablet 10 mg PO DAILY hydrocortisone 2.5 % cream 1 appl topical BID Eliquis 5 mg tablet 5 mg PO BID Referrals: Cammie Reece MD [Primary Care Provider] - Interventions: ED Discharge Assessment Last Done: 07/13/24 13:03 Discharge Date/Time: 07/13/24 13:04 Print Language: [place]
--- NOTE | 2024-07-13 11:19 | PC.NURSE ---
69 year-old male with pmhx of HTN and PAF, presents to the ED today for evaluation of burning with urination x 3 days with assoc frequency and urgency. Denies any abdominal pain or testicle/scrotal issues. Patient evaluated by a urologist yearly for prostate issues and a history of prostatitis.
[2024-07-13 11:25] VITALS: BP 134/80; PULSE 54; RESP 14; TEMP 36.6; O2SAT 97
[2024-07-13 12:50] LABS: CT PCR NOT DETECTED (Not Detect.); NG PCR NOT DETECTED (Not Detect.)
[2024-07-13 13:03] VITALS: BP 134/80; PULSE 54; RESP 14; TEMP 36.6; O2SAT 97
== END 2024-07-13 13:04 | disposition home or self-care (01) ==
PROVIDERS: Physician Assistant Medical; Emergency Provider Emergency Medicine; PCP Internal Medicine
DX: N39.0 Urinary tract infection, site not specified (principal); R30.0 Dysuria
CPT/HCPCS: 81001; 87086; 87491; 87591; 99283; 99284

== ENCOUNTER 2024-12-26 14:10 | Emergency (ER) | payer MEDICARE, SELFPAY ==
[2024-12-26 14:24] VITALS: BP 153/79; PULSE 75; RESP 18; TEMP 36.6; O2SAT 98; BMI 33.7
--- NOTE | 2024-12-26 14:24 | ED.GENADULT ---
HPI - General Adult General Chief complaint: General Medical Stated complaint: trouble urinating/ painful Time Seen by Provider: 12/26/24 16:24 Source: patient Mode of arrival: ambulatory Limitations: no limitations History of Present Illness ED Provider: DR. Basilio HPI narrative: This is a 69-year-old male came in for evaluation of dysuria described as burning sensation with urination otherwise no frequency urination, no hematuria, no urethral discharge, symptoms started few months ago was seen at a walk-in clinic prescribed antibiotic for UTI reported short improvement after the antibiotic but symptoms reoccurring, no fever, no chills, sexually active with 1 partner for the last 47 years with no issue of STI, no back pain, no loss of weight, no history of prostatic issue patient is already have an appointment with his urologist in 10 days. Related Data Home Medications ?Medication ?Instructions ?Recorded ?Confirmed atorvastatin 10 mg tablet 10 mg PO DAILY 04/20/21 01/29/24 lisinopril 20 1 tab PO DAILY 04/20/21 01/29/24 mg-hydrochlorothiazide 25 mg tablet apixaban 5 mg tablet (Eliquis) 5 mg PO BID 10/31/21 01/29/24 hydrocortisone 2.5 % topical cream 1 appl topical BID 05/31/22 01/29/24 Previous Rx's ?Medication ?Instructions ?Recorded cefuroxime axetil 250 mg tablet 250 mg PO BID 7 days #14 tabs 07/13/24 ciprofloxacin HCl 500 mg tablet 500 mg PO BID #20 tabs 12/26/24 phenazopyridine 200 mg tablet 200 mg PO TID 6 doses #7 tabs 12/26/24 (Pyridium) tamsulosin 0.4 mg capsule (Flomax) 0.4 mg PO DAILY #6 caps 12/26/24 Allergies Allergy/AdvReac Type Severity Reaction Status Date / Time No Known Allergies Allergy Unknown NOT Verified 12/26/24 14:27 APPLICABLE Review of Systems Review of Systems: All other systems are reviewed and are negative Constitutional: Reports as per HPI and Reports no additional constitutional complaints Eyes: Reports as per HPI and Reports no additional eye complaints Reports system reviewed and no additional complaints, except as documented Cardiovascular: Reports as per HPI and Reports no additional cardiovascular complaints Respiratory: Reports as per HPI and Reports no additional respiratory complaints Gastrointestinal: Reports as per HPI and Reports no additional gastrointestinal complaints Genitourinary: Reports no additional female genitourinary complaints Musculoskeletal: Reports no additional musculoskeletal complaints Skin/Breast: Reports system reviewed and no additional complaints, except as docu Psychiatric: Reports no additional psychiatric complaints Endocrine: Reports no additional endocrine complaints Hematologic/Lymphatic: Reports no additional hematologic/lymphatic complaints Allergic/Immunologic: Reports no additional allergic/immunologic complaints Reports system reviewed and no additional complaints, except as documented and Reports Abnormal speech present [facility] Past Medical History Medical History Morbid obesity PAF (paroxysmal atrial fibrillation) HTN (hypertension) Surgical History Hx of colonoscopy Family History Family History Father No problems noted. Mother No problems noted. Social History Social History Alcohol intake: never Patient Tobacco Use Status: Never used Tobacco Advance Directives: No Advance Directives Information Provided: No Physical Exam ED Vital Signs: Vital Signs - 24 hr 12/26/24 14:24 Temperature 97.9 F Pulse Rate 75 Respiratory Rate 18 Blood Pressure 153/79 H Pulse Oximetry 98 Oxygen Delivery Method Room Air BMI result Body Mass Index 33.7 Vital signs have been reviewed and appear to be correct. Blood pressure elevated. Heart rate normal. Respiratory rate normal. Temperature normal. Oxygen saturation normal. Appearance: Alert. Oriented X3. No acute distress. Head: Normal external exam. Normocephalic. Atraumatic. No Muhammad signs noted. No raccoon eyes noted Eyes: PERRLA. EOMI. Conjunctiva and sclera normal. Eyelids normal. ENT: TM's Normal. Pharynx normal. Uvula midline. Moist mucous membranes. No trismus noted. No drooling noted. No muffled voice noted. Neck: Normal inspection. Neck supple. FROM. No adenopathy. Thyroid Normal. No meningeal signs. No neck mass noted. CVS: Normal heart rate and rhythm. Heart sound normal. No murmurs noted. Pulses normal throughout. Respiratory: No respiratory distress. Painless inspiration. Breath sounds normal. No wheezes/rales/rhonchi noted. Chest nontender. No accessory muscle usage noted or decreased air movement noted. Abdomen: Soft and nontender. Bowel sounds normal in all 4 quadrants. No distention noted. No organomegaly noted. No visible injury noted. Back: No CVA tenderness. Full range of motion noted. Skin: Skin warm and dry. Normal skin color. Normal skin turgor. No rashes/lesions/lacerations noted. Extremities: No lower extremity edema. Extremities exhibit normal range of motion. Extremities nontender. Neuro: Oriented X 3. Cranial nerve exam: II-XII are grossly intact No motor deficit. No sensory deficit. Reflexes normal. Course Course Course Narrative: This is an RME: Additional HPI, ROS, PE not included below will be deferred to primary provider. RME assessment and note performed by: Pamela Mata PA-C This is a 70-[id number]-nxw-male, with a hx of HTN and PAF on eliquis, who presents to the ER with a complaint of pain with urination x 3 months. Was seen at a PCP office and was told he had a UTI, given abx and symptoms worsened. Plan: Labs, UA, further ER eval needed Reevaluation(s) Reevaluation #1: 69-year-old male with recurrent UTI, low risk for STI serology testing is pending, patient is scheduled to see his urologist next week for likely cystoscopy. Will start the patient on Cipro and encouraged to drink plenty of fluids. Time: 16:50 Medical Decision Making Differential Diagnosis Differential Diagnoses: The differential diagnosis associated with the presentation includes (Cystitis, pyelonephritis, infection, STI, prostatic hyperplasia.) Admission/Observation Consideration of admission/observation: Escalation of care including admission/observation considered Lab Data [facility] Lab Attestation statement: I reviewed the patient's lab results. 12/26/24 15:24 12/26/24 15:24 Labs: Lab Results 12/26/24 Range/Units 15:24 WBC 10.0 (4.8-10.8) X10*3/uL RBC 5.02 (4.60-5.80) X10*6/uL Hgb 15.6 (14.0-18.0) g/dl Hct 45.6 (42.0-52.0) % MCV 90.8 (80.0-98.0) fL MCH 31.1 (27.0-33.0) pg MCHC 34.2 (31.0-36.0) g/dl RDW 14.3 (11.0-16.0) % Plt Count 212 (160-400) X10*3/uL MPV 10.5 (9.4-12.4) fL Immature Gran % (Auto) 0.3 (0.0-0.4) % Neut % (Auto) 75.9 H (45-73) % Lymph % (Auto) 13.8 L (20-40) % [place] % (Auto) 7.4 (2-11) % Eos % (Auto) 1.7 (0-4) % Baso % (Auto) 0.9 (0-2) % Lymph # (Auto) 1.4 (1.2-4.9) X10*3/uL [place] # (Auto) 0.7 (0.1-1.2) X10*3/uL Eos # (Auto) 0.2 (0.0-0.4) X10*3/uL Baso # (Auto) 0.1 (0.0-0.2) X10*3/uL Abs Immat Gran (auto) 0.03 (0.00-0.03) X10*3/uL Absolute Neuts (auto) 7.6 (2.0-8.3) x10*3/uL Absolute Nucleated RBC 0.000 (0.0-0.012) X10*3/uL Nucleated RBC % (auto) 0.0 (0.0-0.2) /100WBC Sodium 143 (135-145) mmol/L Potassium 4.2 (3.3-5.1) mmol/L Chloride 109 H (96-108) mmol/L Carbon Dioxide 27 (22-29) mmol/L Anion Gap 11 L (12-20) BUN 21 H (9-16) mg/dL Creatinine 0.92 (0.5-1.4) mg/dL Estim Creat Clear Calc 87.2 Estimated GFR > 60 Random Glucose 103 (60-115) mg/dL Calcium 9.8 (8.4-10.2) mg/dL Total Bilirubin 0.5 (0.0-1.0) mg/dL Direct Bilirubin 0.2 (0.0-0.5) mg/dL AST 32 (5-37) U/L ALT 30 (0-40) U/L Alkaline Phosphatase 70 (39-117) U/L Total Protein 7.7 (6.5-8.0) g/dL Albumin 4.8 (3.5-5.0) g/dL Urine Color Yellow Urine Appearance Cloudy Urine pH 5.5 (5.0-9.0) Ur Specific [place] 1.020 (1.005-1.025) Urine Protein 100 (2+) H (Neg-Trace) mg/dL Urine Glucose (UA) Negative (Negative) mg/dL Urine Ketones Negative (Negative) mg/dL Urine Blood Large (3+) H (Negative) Urine Nitrite Negative (Negative) Ur Leukocyte Esterase Large (3+) H (Negative) Urine RBC >20 H (0-2) /HPF Urine WBC >50 H (0-5) /HPF Ur Squamous Epith Cells 0-2 (0-2) /HPF Urine Bacteria None Seen (None Seen) Hyaline Casts 0-2 (0-2) /LPF Discharge Plan Discharge Clinical Impression: Cystitis Patient Disposition: Home, Self-Care Instructions: Urinary Tract Infection in Men (DC) Additional Instructions: Drink plenty of fluids. Keep your appointment with your urologist as scheduled next week at [facility]. Prescriptions: New ciprofloxacin HCl 500 mg tablet 500 mg PO BID Qty: 20 0RF tamsulosin [Flomax] 0.4 mg capsule 0.4 mg PO DAILY Qty: 6 0RF phenazopyridine [Pyridium] 200 mg tablet 200 mg PO TID Qty: 7 0RF No Action cefuroxime axetil 250 mg tablet 250 mg PO BID 7 Days Qty: 14 0RF lisinopril-hydrochlorothiazide 20-25 mg tablet 1 tab PO DAILY atorvastatin 10 mg tablet 10 mg PO DAILY hydrocortisone 2.5 % cream 1 appl topical BID Eliquis 5 mg tablet 5 mg PO BID Referrals: Cammie Reece MD [Primary Care Provider, Medical] Print Language: Cape Verdean
[2024-12-26 15:31] LABS: MANUAL DIFF FLAG NO
[2024-12-26 15:32] LABS: Hematocrit 45.6 % (42.0-52.0); Hemoglobin 15.6 g/dl (14.0-18.0); Imm Gran Abs Auto 0.03 X10*3/uL (0.00-0.03); Imm Gran Pct Auto 0.3 % (0.0-0.4); Lymphocytes Absolute Auto 1.4 X10*3/uL (1.2-4.9); Mean Corpuscular HGB Conc 34.2 g/dl (31.0-36.0); Mean Corpuscular Hemoglobin 31.1 pg (27.0-33.0); Mean Corpuscular Volume 90.8 fL (80.0-98.0); NRBC Abs Auto 0.000 X10*3/uL (0.0-0.012); NRBC Pct Auto 0.0 /100WBC (0.0-0.2); Platelet Count 212 X10*3/uL (160-400); Red Blood Count 5.02 X10*6/uL (4.60-5.80); White Blood Count 10.0 X10*3/uL (4.8-10.8)
[2024-12-26 15:33] LABS: Appearance Urine Cloudy; Glucose Urine UA Negative (Negative); PH 5.5 (5.0-9.0); Specific Gravity - Urine 1.020 (1.005-1.025); UMIC TRIGGER UACC YES
[2024-12-26 15:36] LABS: UACC Culture Trigger YES
[2024-12-26 15:49] LABS: Alanine Aminotransferase 30 U/L (0-40); Albumin Level 4.8 g/dL (3.5-5.0); Anion Gap 11 (12-20); Aspartate Amino Transferase 32 U/L (5-37); Blood Urea Nitrogen 21 mg/dL (9-16); Calcium 9.8 mg/dL (8.4-10.2); Carbon Dioxide 27 mmol/L (22-29); Chloride 109 mmol/L (96-108); Creatinine Clr Calc Pharmacy 87.2; Estimated Glomerular Filt Rate > 60; Potassium 4.2 mmol/L (3.3-5.1); Sodium 143 mmol/L (135-145); Total Protein 7.7 g/dL (6.5-8.0)
[2024-12-26 16:43] LABS: Alkaline Phosphatase 70 U/L (39-117)
[2024-12-26 16:48] VITALS: BP 147/82; PULSE 66; RESP 18; O2SAT 99
[2024-12-26 17:00] VITALS: BP 147/82; PULSE 66; RESP 18; TEMP 36.6; O2SAT 99
[2024-12-27 03:06] LABS: CT PCR Urine NOT DETECTED (Not Detect.); NG PCR Urine NOT DETECTED (Not Detect.)
== END 2024-12-26 17:02 | disposition home or self-care (01) ==
PROVIDERS: Physician Assistant Medical; Emergency Provider Emergency Medicine; PCP Internal Medicine
DX: N30.90 Cystitis, unspecified without hematuria (principal); I48.0 Paroxysmal atrial fibrillation; Z79.01 Long term (current) use of anticoagulants; Z87.440 Personal history of urinary (tract) infections; Z79.899 Other long term (current) drug therapy
CPT/HCPCS: 36415; 80048; 80076; 81001; 85025; 87086; 87491; 87591; 99283

== ENCOUNTER 2025-01-28 09:12 | Outpatient (AMB) | payer MEDICARE, SELFPAY ==
[2025-01-28 09:19] VITALS: BP 124/68; PULSE 72; BMI 34.2
--- NOTE | 2025-01-28 09:19 | MHC.OFFVIS ---
Vital Signs 01/28/25 09:19 Height 5 ft 9 in Weight 231 lb 7.766 oz BMI 34.2 BP 124/68 Blood Pressure Location Lt brachial Position Sitting Pulse 72 Pulse Source Monitor Intake Visit Reasons: 1 yr f/u Allergies No Known Allergies Allergy (Unknown, Verified 12/26/24 14:27) NOT APPLICABLE Medication List - Last Reconciled 01/28/25 by Lit Chavez MD apixaban (Eliquis) 5 mg PO BID atorvastatin 10 mg PO DAILY ciprofloxacin HCl 500 mg PO BID hydrocortisone 2.5% 1 appl topical BID lisinopril-hydrochlorothiazide 20-25 mg 1 tab PO DAILY phenazopyridine (Pyridium) 200 mg PO TID 6 doses tamsulosin (Flomax) 0.4 mg PO DAILY HPI Comments Details: Rodrigo returns for follow-up. In 2021, he was seen regarding atrial fibrillation. He had COVID infection and subsequently diagnosed with atrial fibrillation. However, ventricular rate was controlled without medications. He was put on anticoagulation. In follow-up visits, he had converted back to sinus rhythm by himself. Patient states that he was morbidly obese in the past and weighed almost 290-300 lb. Then he lost a lot of weight and apparently his meds were cut back. Previously on metoprolol but not anymore. Still takes lisinopril/hydrochlorothiazide for blood pressure. No documented sleep apnea. He states that he actually sleeps on his stomach with his face down. But when he sleeps facing up, he wakes up with some symptoms suggesting possible sleep apnea but not clear. Never been tested. He remains quite active. He works out on the treadmill at a 15% incline at more than 4 mph and does this for 1 hour. On some occasions, he has not noticed some dizziness extra towards end of the exercise and not clear why. He states he is also coming out of recent cold. [facility] Medical History Morbid obesity PAF (paroxysmal atrial fibrillation) HTN (hypertension) Surgical History Hx of colonoscopy Family History Father No problems noted. Mother No problems noted. Social History Alcohol intake: never Patient Tobacco Use Status: Never used Tobacco Review of Systems Const Denies weakness ENT Denies dizziness Card Denies chest pain, Denies chest pain with activity, Denies syncope, Denies rapid heart rate, Denies pedal edema, Denies edema, Denies leg edema, Denies lightheadedness, Denies palpitations, Denies dyspnea, Denies dyspnea on exertion and Denies orthopnea Resp Denies cough, Denies dyspnea and Denies dyspnea on exertion GI Denies hematochezia and Denies change in stool character Musc Denies abnormal gait, Denies muscle cramps, Denies muscle weakness, Denies numbness, Denies radiating pain into limb and Denies tingling Neuro Denies abnormal gait, Denies dizziness, Denies syncope, Denies numbness, Denies tingling and Denies weakness Endo Denies palpitations Physical Exam Vital Signs: Last Vital Signs Pulse 72 01/28/25 09:19 BP 124/68 01/28/25 09:19 BMI result Body Mass Index 34.2 Const General: comfortable and no acute distress Orientation/consciousness: patient oriented x3 HEENT Other: Unremarkable Head: Yes normal to inspection Neck Neck: Yes normal visual inspection Chest Chest palpation & inspection: normal inspection of the chest Resp Auscultation: clear to auscultation bilaterally Cardio Palpation: normal PMI Heart sounds: S1 normal heart sound present, S2 normal heart sound present, no gallops, no murmurs and no rubs GI Palpation (GI): Soft to palpation Back/Spine/Pelvis Other: unremarkable Skin General skin exam: no rashes or lesions noted Neuro General: patient oriented x3 Extrem General: Yes normal to inspection Psych Mental Status: mental status grossly normal Office Procedures EKG Details: EKG with sinus rhythm at 72/Min; left posterior fascicular block; inferior T inversions; [place] [address]-[id number], Complete Assessment & Plan Assessment & Plan (1) PAF (paroxysmal atrial fibrillation): Code(s): I48.0 - Paroxysmal atrial fibrillation Category: Medical (2) Essential hypertension: Code(s): I10 - Essential (primary) hypertension Category: Medical (3) Morbid obesity: Code(s): E66.01 - Morbid (severe) obesity due to excess calories Category: Medical (4) Left posterior fascicular block (LPFB): Code(s): I44.5 - Left posterior fascicular block Category: Medical Plan Cardiac studies reviewed. Last Holter shows underlying sinus rhythm with an average rate of 67/Min. Occasional PACs/PVCs. No atrial fibrillation. Echocardiogram with low-normal LVEF, 52%. Mild mitral regurgitation and mild aortic valve calcification. He has been in sinus rhythm without any issues. Even while in atrial fibrillation, rate was well controlled and only in the 70s, suggesting underlying conduction system disease. Due to the finding of left posterior fascicular block which is different from prior EKG, we will revisit cardiac testing. Repeat his echocardiogram and stress test. We will also like to look for chronotropic incompetence as he has had some dizziness after the treadmill. For blood pressure, remains on lisinopril/HCTZ. Screening sleep study is negative. With regard to weight, he is exercising regularly and also eating healthier but he states this is his best weight and he can not lose anymore. Follow up after the testing. Discussion Notes I discussed with the patient the need for further testing due to changes in his EKG and his reported dizziness post-exercise. We agreed on scheduling an echocardiogram and a stress test to investigate these issues further. Patient was informed and verbally consented to the use of an ambient scribe for clinic note documentation during this visit. Orders: Orders CA stress test Today I25.10 - Atherosclerotic heart disease of [place] coronary artery without angina pectoris, R07.2 - Precordial pain NM cardiolite stress test Today I25.10 - Atherosclerotic heart disease of [place] coronary artery without angina pectoris, R07.2 - Precordial pain CA echo transthoracic complete Today I25.10 - Atherosclerotic heart disease of [place] coronary artery without angina pectoris, I35.0 - Nonrheumatic aortic (valve) stenosis, I48.0 - Paroxysmal atrial fibrillation Medications: Changed From apixaban (Eliquis) 5 mg PO BID To apixaban (Eliquis) 5 mg PO BID 180 tabs 3RF 90 days Patient Instructions: - Schedule and attend the echocardiogram and stress test appointments. - Continue taking current medications as prescribed. - Monitor for any worsening symptoms and report them immediately. - Follow up in three months for a review of test results and further evaluation. Coding Level of Care Code Est Pt Level 4 (19960) Complex EM visit Add On G2211 Diagnoses PAF (paroxysmal atrial fibrillation) I48.0 Essential hypertension I10 Morbid obesity E66.01 Left posterior fascicular block (LPFB) I44.5 CPT Codes EKG - CPT: 70917-[id number], Complete ([id number])
--- OUTSIDE RECORDS SUMMARY | 2025-01-28 10:03 | XMS_ITS | Clinical Summary ---
Author Organization [address] [facility] Address [address] [place] [address] Phone Care Team Providers Care Addiction Medicine Physician Name Role Phone Cammie Reece MD Primary Care Provider [phone] Encounters Date Type Department Care Team Description 01/06/2025 Lab Requisition [facility] - Main Lab [address] [facility] [place] [address] Jaron France MD Dysuria from Last 3 Months Social History Tobacco Use Types Packs/Day Years Used Date Smoking Tobacco: Never Assessed Sex and Gender Information Value Date Recorded Sex Assigned at Not on file Legal Sex Male 11:00 AM EDT Gender Identity Not on file Sexual Orientation Not on file Plan of Treatment Health Maintenance Due Date Last Done Comments Colorectal Cancer Screening: Colonoscopy 1955 DTaP,Tdap,and Td Vaccines (1 - Tdap) 01/13/1972 Pneumococcal Vaccine: 50+ Ye ars (1 of 1 - PCV) 2003 Zoster Vaccines (1 of 2) 2003 Depression Screening 03/19/2024 Abdominal Aortic Aneurysm (A AA) Screen 07/29/2024 Cholesterol Screening (Lipid Panel) 07/29/2024 Falls Risk Assessment 07/29/2024 Hepatitis C Screening 07/29/2024 Medicare Annual Wellness Visit 07/29/2024 Social Influencers of Health Screening 07/29/2024 COVID-19 Vaccine ( - 2023-2 5 season) 2024 Influenza Vaccine (#1) 2024 RSV Immunization Adult Patie nts (1 - 1-dose 75+ series) 01/13/2028 HIB Vaccines Aged Out No longer eligi ble based on patient's age to complete this topic HPV Vaccines Aged Out No longer eligi ble based on patient's age to complete this topic Hepatitis A Vaccines Aged Out No long er eligible based on patient's age to complete this topic Hepatitis B Vaccines Aged Out No long er eligible based on patient's age to complete this topic IPV Vaccines Aged Out No longer eligi ble based on patient's age to complete this topic MMR Vaccines Aged Out No longer eligi ble based on patient's age to complete this topic Meningococcal ACWY Vaccine Aged Out N o longer eligible based on patient's age to complete this topic Meningococcal B Vaccine Aged Out No l onger eligible based on patient's age to complete this topic RSV Immunization Patients Un jason 20 months Aged Out No longer eligible b ased on patient's age to complete this topic Varicella Vaccines Aged Out No longer eligible based on patient's age to complete this topic Procedures Procedure Name Priority Date/Time Associated Diagnosis Comments BACTERIAL IDENTIFICATION AND SUSCEPTIBILITY, AEROBIC Routine 01/05/2025 12:00 AM EDT Dysuria from Last 3 Months Results * (ABNORMAL) Baterial identification and susceptibility, aerobic (01/05/2025 12:00 AM EDT) [facility] Culture, Bacterial ID and Sensitivity Light Growth Staphylococcus haemolyticus(A) KARELY 01/07/2025 8:58 AM EDT [facility] Comment: Edited result: Previously reported as Gram Positive Cocci on 01/06/2025 at 1259 EDT. Other Urine specimen from urethra / Unknown 01/05/2025 01/06/2025 10:56 AM EDT Narrative Organism Antibiotic Method Susceptibility Staphylococcus haemolyticus Benzylpenicillin KARELY >=0.5 ug/ml: Resistant Staphylococcus haemolyticus Oxacillin KARELY >=4 ug/ml: Resistant Staphylococcus haemolyticus Gentamicin KARELY <=0.5 ug/ml: Susceptible Staphylococcus haemolyticus Ciprofloxacin KARELY >=8 ug/ml: Resistant Staphylococcus haemolyticus Levofloxacin KARELY >=8 ug/ml: Resistant Staphylococcus haemolyticus Linezolid KARELY 2 ug/ml: Susceptible Staphylococcus haemolyticus Vancomycin KARELY <=0.5 ug/ml: Susceptible Staphylococcus haemolyticus Tetracycline KARELY 2 ug/ml: Susceptible Staphylococcus haemolyticus Nitrofurantoin KARELY <=16 ug/ml: Susceptible Staphylococcus haemolyticus Rifampin KARELY <=0.5 ug/ml: Susceptible us Jaron France MD LAB MICROBIOLOGY - GENER AL ORDERABLES Final Result [facility] ([facility] HOSPITAL LAB [address] [place] [address], from Last 3 Months Insurance [employer] Care Teams Addiction Medicine Physician Relationship Specialty Start Date End Date Cammie Reece MD [address] [place] [address] PCP - General Internal Medicine 07/29/24
--- OUTSIDE RECORDS SUMMARY | 2025-01-28 10:03 | XMS_ITS | Encounter Summary ---
Author Organization [facility] Address [address] [place] [address] Care Team Providers Care Diet Kitchen Cook Name Role Phone Cammie Reece MD Primary Care Provider [phone] Encounter Details Date Type Department Care Team (Late st Contact Info) Description 07/29/[address] [facility] - Main Lab [address] [facility] [address] [facility] [place] [address] Nohemi Waters PA [address] [facility] [address] [place] [address] Frequency of micturition Social History Tobacco Use Types Packs/Day Years Used Date Smoking Tobacco: Never Assessed Sex and Gender Information Value Date Recorded Sex Assigned at Not on file Legal Sex Male 11:00 AM EDT Gender Identity Not on file Sexual Orientation Not on file documented as of this encounter Plan of Treatment Not on file documented as of this encounter Procedures Procedure Name Priority Date/Time Associated Diagnosis Comments BACTERIAL IDENTIFICATION AND SUSCEPTIBILITY, AEROBIC Routine 07/28/2024 12:00 AM EDT Frequency of micturition documented in this encounter Results * Bacterial identification and susceptibility, aerobic (07/28/2024 12:00 AM EDT) Culture, Bacterial ID and Sensitivity Multiple bacterial morphotypes present consistent with either contamination or urogenital francisca. Suggest repeat specimen, if clinically indicated. 07/29/2024 12:47 PM EDT [facility] Other Urine specimen from urethra / Unknown 07/28/2024 07/29/2024 11:09 AM EDT us Nohemi GIRON LAB MICROBIOLOGY - GENERAL ORDER RAFAL Final Result [facility] H[facility] LAB [address] [place] [address], documented in this encounter Visit Diagnoses Diagnosis Frequency of micturition Urinary frequency documented in this encounter Care Teams Diet Kitchen Cook Relationship Specialty Start Date End Date Cammie Reece MD [address] [place] [address] PCP - General Internal Medicine 07/29/24 documented as of this encounter
--- OUTSIDE RECORDS SUMMARY | 2025-01-28 10:03 | XMS_ITS | Encounter Summary ---
Author Organization [facility] Address [address] [place] [address] Care Team Providers Care Nailing Machine Operator Automatic Name Role Phone Cammie Reece MD Primary Care Provider [phone] Encounter Details Date Type Department Care Team (Late st Contact Info) Description 01/06/2025 Lab Requisition [facility] - Main Lab [address] [facility] [place] [address] Jaron France MD [address] [place], [place] [id number] Dysuria Social History Tobacco Use Types Packs/Day Years [...] AEROBIC Routine 01/05/2025 12:00 AM EDT Dysuria documented in this encounter Results * (ABNORMAL) Baterial identification and susceptibility, aerobic (01/05/2025 12:00 AM EDT) Culture, Bacterial ID and Sensitivity Light Growth Staphylococcus haemolyticus(A) KARELY 01/07/2025 8:58 AM EDT [facility] ([facility] Comment: Edited result: Previously reported as [...] MICROBIOLOGY - GENER AL ORDERABLES Final Result [facility] ([facility]) [facility] [address] [place] [address], documented in this encounter Visit Diagnoses Diagnosis Dysuria documented in this encounter Care Teams Nailing Machine Operator Automatic Relationship Specialty Start Date End Date Cammie Reece MD [address] [place] [address] PCP - General Internal Medicine 07/29/24 documented as of this encounter
== END 2025-01-28 09:52 | disposition home or self-care (01) ==
LOC: HO.HCS 09:13
PROVIDERS: PCP Internal Medicine; Visit Provider Internal Medicine
DX: I48.0 Paroxysmal atrial fibrillation (principal); I10 Essential (primary) hypertension; E66.01 Morbid (severe) obesity due to excess calories; I44.5 Left posterior fascicular block
CPT/HCPCS: 93010; 99214; G2211

== ENCOUNTER → 2025-01-28 09:12 | Outpatient (BNVA) | payer MEDICARE, SELFPAY | PROVIDERS: PCP Internal Medicine; Visit Provider Internal Medicine | DX: I48.0 Paroxysmal atrial fibrillation (principal); I10 Essential (primary) hypertension; E66.01 Morbid (severe) obesity due to excess calories; I44.5 Left posterior fascicular block; Z79.01 Long term (current) use of anticoagulants | CPT/HCPCS: 93005; 99212 ==

== ENCOUNTER → 2025-03-13 07:50 | Outpatient (REF) | payer MEDICARE, SELFPAY ==
--- OUTSIDE RECORDS SUMMARY | 2025-03-13 07:52 | XMS_ITS | Encounter Summary ---
Author Organization [facility] Address [address] [place] [address] Care Team Providers Care Baster Hand Name Role Phone Cammie Reece MD Primary Care Provider [phone] Encounter Details Date Type Department Care Team (Late st Contact Info) Description 07/29/2024 Lab Requisition [facility] - Main Lab [address] [facility] [address] [facility] [place] [address] Nohemi Waters PA [address] [facility] [address] [place] [address] Frequency of micturition Social History Tobacco Use [...] if clinically indicated. 07/29/2024 12:47 PM EDT [facility] ([facility]) [facility] Other Urine specimen from urethra / Unknown 07/28/2024 07/29/2024 11:09 AM EDT us Nohemi GIRON LAB MICROBIOLOGY - GENERAL ORDER RAFAL Final Result [facility] ([facility] H[facility] LAB [address] [place] [address], documented in this encounter Visit Diagnoses Diagnosis Frequency of micturition Urinary frequency documented in this encounter Care Teams Baster Hand Relationship Specialty Start Date End Date Cammie Reece MD [address] [place] [address] PCP - General Internal Medicine 07/29/24 documented as of this encounter
--- OUTSIDE RECORDS SUMMARY | 2025-03-13 07:52 | XMS_ITS | Encounter Summary ---
Author Organization [facility] Address [address] [place] [address] Care Team Providers Care Corn Press Operator Name Role Phone Cammie Reece MD Primary Care Provider [phone] Encounter Details Date Type Department Care Team (Late st Contact Info) Description 01/06/2025 Lab Requisition [facility] - Main Lab [address] [facility] [place] [address] Jaron France MD [address] [place], [place] [id number] Dysuria Social History Tobacco Use Types Packs/Day [...] Staphylococcus haemolyticus(A) KARELY 01/07/2025 8:58 AM EDT [facility] ([facility]) [facility] Comment: Edited result: Previously [...] MICROBIOLOGY - GENER AL ORDERABLES Final Result [facility] ([facility]) [facility] [address] [place] [address], documented in this encounter Visit Diagnoses Diagnosis Dysuria documented in this encounter Care Teams Corn Press Operator Relationship Specialty Start Date End Date Cammie Reece MD [address] [place] [address] PCP - General Internal Medicine 07/29/24 documented as of this encounter
--- OUTSIDE RECORDS SUMMARY | 2025-03-13 07:52 | XMS_ITS | Clinical Summary ---
Author Organization 299 [facility] Address [address] [place] [address] Phone Care Team Providers Care Service Tester Name Role Phone Cammie Reece MD Primary Care Provider [phone] Encounters Date Type Department Care Team Description 01/06/2025 Lab Requisition [facility] - Main Lab [address] [facility] [place] [address] Jaron France MD Dysuria from [...] Health Screening 07/29/2024 COVID-19 Vaccine ( - 2024-2 6 season) 2024 Influenza Vaccine (#1) 2024 RSV [...] and susceptibility, aerobic (01/05/2025 12:00 AM EDT) [facility] Culture, Bacterial ID and Sensitivity Light Growth Staphylococcus haemolyticus(A) KARELY 01/07/2025 8:58 AM EDT [facility] Comment: Edited result: Previously [...] - GENER AL ORDERABLES Final Result [facility] ([facility] H[facility]PITAL LAB [address] [place] [address], from Last 3 Months Insurance [employer] Care Teams Service Tester Relationship Specialty Start Date End Date Cammie Reece MD [address] [place] [address] PCP - General Internal Medicine 07/29/24
--- NOTE | 2025-03-13 07:53 | CA_ITS ---
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 Study Quality: Adequate w/Contrast ECG Rhythm: Sinus Conclusions: - 1. Normal LV ejection fraction 55-60% with impaired relaxation filling pattern 2. Calcific aortic valve changes noted with increased gradient suggestive of early mild aortic stenosis 3. Moderately dilated ascending aorta at 4.5 cm 4. Normal RV systolic pressure 5. No gross pericardial effusion Findings Procedure Information Contrast agent, definity, is being given per protocol without apparent complications. Left Ventricle Normal left ventricular size, thickness, and systolic function. The visually estimated ejection fraction is between 55-60%. Spectral Doppler is indicative of an impaired relaxation filling pattern. E/E prime ratio is between 8 and 15 consistent with indeterminate filling pressures. Wall Motion Rest Echo Findings The basal inferior and basal inferoseptal segments are hypokinetic. All other scored wall segments showed normal motion. Right Ventricle Normal right ventricular cavity size and systolic function. Atria The left atrium is mildly dilated. There is no evidence of interatrial shunt. The right atrium is likely dilated. Aortic Valve There is a doming trileaflet aortic valve. There is mild calcification of the aortic valve. The peak aortic velocity is 2.08 m/s with a calculated peak gradient of 17 mmHg. The mean gradient is 9 mmHg. There is no aortic valve regurgitation. Mitral Valve There is mild anterior and posterior mitral leaflet thickening. There is trace mitral valve regurgitation. There is no mitral valve stenosis. Pulmonic Valve The pulmonic valve is likely normal. Tricuspid Valve Normal tricuspid valve structure. There is trace tricuspid valve regurgitation. The right ventricular systolic pressure is normal. The right ventricular systolic pressure is 22 mmHg. Normal right atrial pressure. There is no evidence of pulmonary hypertension. Great Vessels The pulmonary artery was not well visualized. There is moderate dilatation of the ascending aorta measuring 4.50 cm. Small plaque is seen in the sino tubular ridge. Venous The inferior vena cava is normal in size and collapses greater than 50% with inspiration. Pericardium/Pleural There is no evidence of pericardial effusion. Prior Study Comparison Changes noted compared to prior study dated: 04/21/2021. ascending aorta is moderately dilated, consider CT imaging Measurements 2D Linear Measurements IVSd: 0.92 0.6-0.9/0.6-1.0 cm LVIDd: 5.32 3.9-5.3/4.2-5.9 cm LVIDd Index: 2.42 2.4-3.2/2.2-3.1 cm/m2 LVIDs: 3.35 2.0-3.6 cm LVPWd: 0.79 0.7-1.1 cm LA Diam: 4.00 2.7-3.8/3.0-4.0 cm LAIDs Index: 1.82 1.5-2.3 cm/m2 LV Mass: 204.89 67-162/88-224 g LV Mass Index: 93.13 43-95/49-115 g/m2 LVOT Diam: 2.30 3.0+(-)1.3 cm 2D Systolic Function EF 4C: 57.10 >55% EF 2C: 58.40 >55% EF BiP: 57.60 >55% Mitral Valve MV Pk E: 0.65 MV PK A: 0.51 MV Decel Time: 204.00 E/A: 1.30 E'Lateral: 9.68 E'Medial: 6.53 E/E' Med: 10.00 E/E' Lat: 6.70 PHT: 60.00 MVA PHT: 3.67 Decel Pacific: 3.19 Aortic Valve AoV Pk Edi: 2.08 AoV Mn Edi: 1.41 AoV VTI: 0.45 AoV Pk Grad: 17.00 Aov Mn Grad: 9.00 ANDRZEJ Cont.VTI: 2.16 LVOT LVOT Pk Edi: 1.04 LVOT Mn Edi: 0.72 LVOT VTI: 0.23 LVOT Pk Grad: 4.00 LVOT Mn Grad: 2.00 LVOT Diam: 2.30 LVOT Area: 4.15 Diastolic Function MV Pk E: 0.65 MV Pk A: 0.51 E/A: 1.30 E'Medial: 6.53 E/E' Med: 10.00 E' Laterial: 9.68 E/E' Lat: 6.70 Right Ventricle TAPSE (mm): 2.44 TVS' Edi: 10.80 Tricuspid Valve TR Pk Edi: 2.19 TR Pk Grad: 19.00 RA Press: 3.00 RVSP: 22.00 Great Vessels Aorta Sinus of Valsalva: 3.70 2.0-3.5 cm Ao Asc: 4.50 2.1-3.4 cm Ao Arch: 3.40 Pulmonary Veins Pulm Vein S/D 0.60 Updated in Other Vendor System with Status of Final Pierre Myers MD electronically signed on 03/14/2025 1:06:13 PM with status of Final
== END ==
LOC: HO.CARD 07:50
PROVIDERS: PCP Internal Medicine; Visit Provider Internal Medicine
DX: I25.10 Atherosclerotic heart disease of native coronary artery without angina pectoris (principal); I48.0 Paroxysmal atrial fibrillation; I35.0 Nonrheumatic aortic (valve) stenosis
CPT/HCPCS: 93306; Q9957

== ENCOUNTER → 2025-03-13 07:53 | Outpatient (BNV) | payer MEDICARE, SELFPAY | PROVIDERS: PCP Internal Medicine; Visit Provider Internal Medicine Cardiovascular Disease | DX: I77.810 Thoracic aortic ectasia (principal); I35.8 Other nonrheumatic aortic valve disorders | CPT/HCPCS: 93306 ==

== ENCOUNTER → 2025-03-16 07:33 | Outpatient (REF) | payer MEDICARE, SELFPAY ==
--- NOTE | ~2025-03-16 | NM_ITS ---
EXERCISE MYOCARDIAL PERFUSION STUDY INDICATION: Abnormal EKG TECHNIQUE: The patient was brought in for an exercise perfusion study on . Patient performed exercise as per Armond protocol and was injected 40 mCi of sestamibi once target heart rate was achieved. Images were obtained using the SPECT gamma camera interlaced with the gating device. Images were obtained in supine position. Resting perfusion study was performed on 03/17/2025. Patient was administered 40 mCi of sestamibi intravenously at rest. Images were then obtained in supine position. Total DLP 86 mGy-cm. Images were processed with the software and compared side to side in short axis, horizontal long axis and vertical long axis views. FINDINGS: Raw aquisition reviewed. The stress perfusion study showed no significant perfusion body. Both uncorrected as well as CT attenuation corrected images were reviewed. The gated study shows normal LV systolic function with calculated LVEF of 62%. LV cavity is normal in size. The gated study shows normal wall thickening and contraction of segments. Resting study shows no significant perfusion abnormality. Gating at rest reveals normal wall motion with ejection fraction at 63%. The findings are consistent with no clear reversible or fixed perfusion defects. NM/NM cardiolite stress test IMPRESSION: 1. Myocardial perfusion imaging study shows probably normal myocardial perfusion. 2. Gated LVEF is 62% during stress and 63% during rest. 3. Transient ischemic dilatation not present. EKG component of the test reported separately. Electronically signed by: Lit Chavez MD 03/17/2025 04:36 PM [facility]
--- NOTE | 2025-03-16 07:35 | CA_ITS ---
Acquisition Time: 2025-03-16 08:03:13 Total Exercise Time: 00:05:16 Test Indications: AFIB, ABN EKG Medications: SEE H&P Protocol: TONY Max HR: 148 BPM 100% of Pred: 148 BPM Max BP: 144/70 mmHG Max Work Load: 7.0 METS Exercise stress test with exercise 5 mins 16 secs of Tony Protocol, achieving 100% MPHR, without any reports of CP or dizziness, with frequent PAC, rare couplets and isolated PVCs, with normotensive response to exercise. Without any EKG changes meeting criteria for ishemia. In recovery, pt continued to feel well. Nuclear images pending. Test reviewed with Dr. Chavez. Referred By: Lit Chavez Electronically Signed By: Jesus Desai
--- OUTSIDE RECORDS SUMMARY | 2025-03-16 07:37 | XMS_ITS | Encounter Summary ---
Author Organization [facility] Address [address] [place] [address] Care Team Providers Care Investment Representative Name Role Phone Cammie Reece MD Primary Care Provider [phone] Encounter Details Date Type Department Care Team (Late st Contact Info) Description 07/29/[address] [facility] - Main Lab [address] [facility] [address] [facility] [place] [address] Nohemi Waters PA [address] [facility] [address] [place] [address] Frequency of micturition Social History Tobacco Use [...] if clinically indicated. 07/29/2024 12:47 PM EDT [facility] ([facility]) [facility] Other Urine specimen from urethra / Unknown 07/28/2024 07/29/2024 11:09 AM EDT us Nohemi GIRON LAB MICROBIOLOGY - GENERAL ORDER RAFAL Final Result [facility] ([facility] H[facility] LAB [address] [place] [address], documented in this encounter Visit Diagnoses Diagnosis Frequency of micturition Urinary frequency documented in this encounter Care Teams Investment Representative Relationship Specialty Start Date End Date Cammie Reece MD [address] [place] [address] PCP - General Internal Medicine 07/29/24 documented as of this encounter
--- OUTSIDE RECORDS SUMMARY | 2025-03-16 07:37 | XMS_ITS | Clinical Summary ---
Author Organization 299 [facility] Address [address] [place] [address] Phone Care Team Providers Care Athletic Shoe Designer Name Role Phone Cammie Reece MD Primary Care Provider [phone] Encounters Date Type Department Care Team Description 01/06/2025 Lab Requisition [facility] - Main Lab [address] [facility] [employer] [place] [address] Jaron France MD Dysuria from [...] and susceptibility, aerobic (01/05/2025 12:00 AM EDT) [facility] Culture, Bacterial ID and Sensitivity Light Growth Staphylococcus haemolyticus(A) KARELY 01/07/2025 8:[address] [facility] Comment: Edited result: Previously reported [...] - GENER AL ORDERABLES Final Result [facility] ([facility] H[facility] LAB [address] [place] [address], from Last 3 Months Insurance [employer] Care Teams Athletic Shoe Designer Relationship Specialty Start Date End Date Cammie Reece MD [address] [place] [address] PCP - General Internal Medicine 07/29/24
--- OUTSIDE RECORDS SUMMARY | 2025-03-16 07:37 | XMS_ITS | Encounter Summary ---
Author Organization [facility] Address [address] [place] [address] Care Team Providers Care Bilingual Loan Processor Name Role Phone Cammie Reece MD Primary Care Provider [phone] Encounter Details Date Type Department Care Team (Late st Contact Info) Description 01/06/2025 Lab Requisition [facility] - Main Lab [address] [facility] [place] [address] Jaron France MD [address] [place], [place] [phone] Dysuria Social History Tobacco Use Types Packs/Day [...] Staphylococcus haemolyticus(A) KARELY 01/07/2025 8:58 AM EDT [facility] ([facility]) [facility] Comment: Edited result: Previously reported [...] MICROBIOLOGY - GENER AL ORDERABLES Final Result [facility] ([facility]) [facility] [address] [place] [address], documented in this encounter Visit Diagnoses Diagnosis Dysuria documented in this encounter Care Teams Bilingual Loan Processor Relationship Specialty Start Date End Date Cammie Reece MD [address] [place] [address] PCP - General Internal Medicine 07/29/24 documented as of this encounter
== END ==
LOC: HO.CARD 07:33
PROVIDERS: PCP Internal Medicine; Visit Provider Internal Medicine
DX: I25.10 Atherosclerotic heart disease of native coronary artery without angina pectoris (principal); R07.2 Precordial pain
CPT/HCPCS: 78452; 93017; A9500

== ENCOUNTER → 2025-03-16 07:35 | Outpatient (BNV) | payer MEDICARE, SELFPAY | PROVIDERS: PCP Internal Medicine | DX: I49.3 Ventricular premature depolarization (principal); I49.1 Atrial premature depolarization | CPT/HCPCS: 78452; 93016; 93018 ==